=== PATIENT | female | born 1945 | race Caucasian/White ===

== ENCOUNTER → 2016-07-22 | Outpatient (REF) | payer OTHER ==
[2016-07-22 16:50] LABS: ALBUMIN 4.1 GM/DL (3.2-5.2); ALBUMIN/GLOBULIN RATIO 1.08 (1.00-1.93); ALKALINE PHOSPHATASE 50 U/L (45-117); ALT/SGPT 31 U/L (12-78); ANION GAP 11 MEQ/L (8-16); AST/SGOT 16 U/L (15-37); BILIRUBIN,TOTAL 0.3 MG/DL (0.2-1.0); BLOOD UREA NITROGEN 18 MG/DL (7-18); CALCIUM LEVEL 8.8 MG/DL (8.8-10.2); CARBON DIOXIDE LEVEL 28 MEQ/L (21-32); CHLORIDE LEVEL 100 MEQ/L (98-107); CHOLESTEROL LEVEL 260 MG/DL (<200); CREATININE FOR GFR 0.93 MG/DL (0.55-1.02); GLOMERULAR FILTRATION RATE > 60.0 (>39); GLUCOSE, FASTING 141 MG/DL (83-110); POTASSIUM SERUM 3.8 MEQ/L (3.5-5.1); SODIUM LEVEL 139 MEQ/L (136-145); TOTAL PROTEIN 7.9 GM/DL (6.4-8.2); TRIGLYCERIDES LEVEL 282 MG/DL (<150)
== END ==
LOC: M SFHCLACO 07:54
PROVIDERS: ATTEND Physician Assistant
DX: I10 Essential (primary) hypertension (principal); E78.2 Mixed hyperlipidemia; E11.9 Type 2 diabetes mellitus without complications

== ENCOUNTER 2016-10-23 14:56 | Inpatient (IN) | payer OTHER ==
[~2016-10-23] VITALS: Ht 167.6 cm; Wt 68.2 kg
[2016-10-23] MEDS ORDERED: METF500T13 (15:10)
[2016-10-23] MEDS ORDERED: LOSA50TA20 (15:10)
[2016-10-23] MEDS ORDERED: ZETI10TA30 (15:10)
[2016-10-23] MEDS ORDERED: OMEP20CA3 (15:10)
[2016-10-23] MEDS ORDERED: HYDR50TAB (15:10)
[2016-10-23] MEDS ORDERED: ACETAMINOPHEN 325 MG TAB As Ordered ONE (15:21)
[2016-10-23] MEDS ORDERED: ACETAMINOPHEN TAB 650MG DOSE (2X325MG) PO ONE (15:30)
[2016-10-23] MEDS ORDERED: NS 500 ML IV ONE (15:45)
[2016-10-23 15:59] LABS: BASO % 0.1 % (0.0-1.0); EOS % 0.1 % (0.0-3.0); LARGE UNSTAINED CELL # 0.1 K/mm3 (0.0-0.4); LARGE UNSTAINED CELL % 0.8 % (0.0-4.0); LYMPH # 0.8 K/mm3 (1.5-4.5); LYMPH % 4.1 % (24.0-44.0); MEAN CORPUSCULAR VOLUME 88.2 fl (80.0-96.0); MONO # 0.6 K/mm3 (0.0-0.8); MONO % 3.7 % (0.0-5.0); NEUTROPHILS # 15.6 K/mm3 (1.8-7.7); NEUTROPHILS % 91.2 % (36.0-66.0); PLATELET COUNT, AUTOMATED 179 k/mm3 (150-450); RED CELL DISTRIBUTION WIDTH 12.8 % (11.5-14.5); WHITE BLOOD COUNT 17.1 K/mm3 (4.0-10.0)
[2016-10-23 16:06] LABS: ALBUMIN 3.1 GM/DL (3.2-5.2); ALBUMIN/GLOBULIN RATIO 0.67 (1.00-1.93); ALKALINE PHOSPHATASE 50 U/L (45-117); ALT/SGPT 18 U/L (12-78); ANION GAP 11 MEQ/L (8-16); AST/SGOT < 3 U/L (15-37); BILIRUBIN,DIRECT 0.2 MG/DL (0.0-0.2); BILIRUBIN,TOTAL 0.6 MG/DL (0.2-1.0); BLOOD UREA NITROGEN 13 MG/DL (7-18); CALCIUM LEVEL 8.3 MG/DL (8.8-10.2); CARBON DIOXIDE LEVEL 26 MEQ/L (21-32); CHLORIDE LEVEL 95 MEQ/L (98-107); CREATININE FOR GFR 0.98 MG/DL (0.55-1.02); GLOMERULAR FILTRATION RATE 59.2 (>39); GLUCOSE, FASTING 222 MG/DL (83-110); SODIUM LEVEL 132 MEQ/L (136-145); TOTAL PROTEIN 7.7 GM/DL (6.4-8.2)
[2016-10-23 16:12] LABS: ABG BASE EXCESS 0.4 (-2.0-2.0); ABG HCO3 23.2 MEQ/L (22.0-26.0); ABG PARTIAL PRESSURE CO2 31.3 mmHg (35.0-45.0); ABG PARTIAL PRESSURE O2 130.3 mmHg (75.0-100.0); ABG STANDARD HCO3 24.8 MEQ/L (22.0-26.0); ABG TOTAL CO2 24.1 MEQ/L (23.0-31.0); ABG pH (ARTERIAL) 7.487 UNITS (7.350-7.450)
[2016-10-23 16:14] LABS: POTASSIUM SERUM 2.7 MEQ/L (3.5-5.1)
[2016-10-23 16:16] LABS: INR 1.13
[2016-10-23] MEDS ORDERED: POTASSIUM CHLORIDE 10 MEQ SR TABLET PO ONE ×2 (16:30→21:00)
[2016-10-23] MEDS ORDERED: AZITHROMYCIN INJ 500 MG, VIAL MATE ADAPTER 1 EACH in D5W 250 ML IV ONE (16:30)
[2016-10-23] MEDS ORDERED: OMEP20CA3 PO (17:03)
[2016-10-23] MEDS ORDERED: METF500T13 PO (17:03)
[2016-10-23] MEDS ORDERED: HYDR50TAB PO (17:03)
[2016-10-23] MEDS ORDERED: ZETI10TA30 PO (17:03)
[2016-10-23] MEDS ORDERED: LOSA50TA20 PO (17:03)
[2016-10-23] MEDS ORDERED: TYLE500T78 PO (17:03)
[2016-10-23] MEDS ORDERED: DEXTROSE 50% 50 ML SYRINGE IV PRN (18:30)
[2016-10-23] MEDS ORDERED: GLUCOSE 4 GM CHEW TABLET PO PRN (18:30)
[2016-10-23] MEDS ORDERED: GLUCAGON FOR INJ 1 MG VIAL (J1610) SC PRN (18:30)
[2016-10-23] MEDS ORDERED: ONDANSETRON 4MG/2ML VIAL (J2405) IV PRN (18:30)
[2016-10-23 18:42] LABS: MAGNESIUM LEVEL 1.2 MG/DL (1.8-2.4)
[2016-10-23 20:09] LABS: CALCIUM LEVEL 7.8 MG/DL (8.8-10.2); CREATININE FOR GFR 1.14 MG/DL (0.55-1.02); GLOMERULAR FILTRATION RATE 49.7 (>39)
[2016-10-23 20:15] VITALS: BP 139/64
[2016-10-23] MEDS: NS 1,000 ML IV SCH (20:49)
[2016-10-23] MEDS: HumaLOG INSULIN (NovoLOG) PER UNIT SC SCH (20:50)
[2016-10-23] MEDS: OMEPRAZOLE 20 MG CAP PO SCH (20:50)
[2016-10-23] MEDS: EZETIMIBE 10 MG TAB (ZETIA) PO SCH (20:50)
--- NOTE | 2016-10-23 21:29 | HPE ---
DATE OF ADMISSION: 10/23/2016 Ms. Vides is a patient of Samia Lam. "I feel like crap." History of present illness is as follows: This is a 71-year-old female who 3 days ago began having decreasing energy, fatigue she attributed to increased level of activity related to her children coming and visiting for a week. She has been camping, but she began not eating and drinking as much and she vomited today. She also had chills this morning and she was running the heater in the car on a day when the air temperature was approximately 75 degrees. She does not describe any cough and she did note some sore throat today. She was brought to the emergency department for evaluation. She was found to have an elevated white cell count and thought to have group B Streptococcus pharyngitis based on a positive screen for the same. PAST MEDICAL HISTORY: Known for: 1. High blood pressure. 2. Hyperlipidemia. 3. Diabetes on metformin. 4. Gastroesophageal reflux disease (GERD). PAST SURGICAL HISTORY: Known for: 1. Gallbladder removal. 2. Tubal ligation. 3. Removal of blood clots from her legs. 4. Total abdominal hysterectomy and bilateral salpingo-oophorectomy. 5. Removal of kidney stone. FAMILY HISTORY: Known for two parents who from heart attacks. Socially, she is a nonsmoker. She lives in [place]. ALLERGIES: She has listed allergies to ASPIRIN and KEFLEX. MEDICATIONS AT HOME: Listed as: - Tylenol - hydrochlorothiazide - losartan - metformin - Zetia - omeprazole REVIEW OF SYSTEMS: No headache. No visual changes. No runny nose. No sore throat until today. No neck pain. No cough. No abdominal pain. No change in bowel or bladder habits. No focal weakness. No history of seizures. Otherwise, unremarkable. PHYSICAL EXAMINATION: Temperature 101.5 upon arrival, most recently 99.2, pulse was 110 upon arrival, most recently 94, respiratory rate 18, blood pressure 126/60, 95% on room air. Intake and output (I and O) are not recorded. Body mass index (BMI) is 24.3. She is awake, appropriately interactive, excellent historian. Head is normocephalic. Pupils equally round and reactive, anicteric, show evidence of cataract extraction. Nasal septum is midline. Mucous membranes are moist. Neck is supple, thick. There is some pharyngeal erythema and her tonsils are somewhat enlarged, probably around 2+. Breathing is symmetrical. I:E ratio is 1:3. Distant sounding, somewhat diminished to bilateral bases. No wheezes, rales or rhonchi. Heart is distant sounding. Normal S1, S2. Capillary refill is less than 2 seconds. The abdomen is soft, doughy, nontender. No significant lower extremity edema. White cell count 17.1, hemoglobin 10.9, platelets of 179. Sodium is 135, potassium 3.0, carbon dioxide 24, creatinine is 1.14, calcium is 7.8. Urinalysis is notable for trace leukocyte esterase, 13 white cells, 1+ bacteria, 6 squamous epithelial cells. Influenza swab is negative. Respiratory panel is negative as well. Blood cultures are pending. Urine culture pending. Chest x-ray suggests the possibility of right basilar infiltrate. EKG shows a left bundle branch block. There is no previous EKG for me to review in the system. Troponin was negative. My assessment is as follows: This is a 71-year-old with community-acquired pneumonia. Patient will require two-midnight hospital stay for further diagnosis and workup. Plan will be as follows: 1. Infectious disease. The patient has allergy to cephalexin. She appears to have a right-sided pneumonia. Will give Avelox and monitor. Obtain sputum if that should become available. 2. Patient has hypertension. Will hold her antihypertensives in this setting and reassess in the morning. 3. Patient has diabetes. Will withhold her metformin and give insulin sliding scale. 4. Patient has electrolyte abnormality including hyponatremia and hypokalemia. Will replete potassium. 5. Patient has hyperlipidemia. Will continue her Zetia. 6. Patient has gastroesophageal reflux disease (GERD). Continue her proton pump inhibitor (PPI). 7. Deep venous thrombosis (DVT) prophylaxis has been ordered.
[2016-10-23 22:00] VITALS: BP 126/58
[2016-10-24] MEDS: MOXIFLOXACIN HCL 400 MG in APPROPRIATE DILUENT 1 EA IV SCH (05:26)
[2016-10-24] MEDS: ACETAMINOPHEN TAB 650MG DOSE (2X325MG) PO PRN ×2 (05:33→22:02)
[2016-10-24 06:00] VITALS: BP 140/70
[2016-10-24 06:25] LABS: BASO % 0.1 % (0.0-1.0); EOS % 0.1 % (0.0-3.0); LARGE UNSTAINED CELL # 0.2 K/mm3 (0.0-0.4); LARGE UNSTAINED CELL % 1.2 % (0.0-4.0); LYMPH # 1.9 K/mm3 (1.5-4.5); LYMPH % 12.3 % (24.0-44.0); MEAN CORPUSCULAR HEMOGLOBIN 30.2 pg (27.0-33.0); MEAN CORPUSCULAR VOLUME 88.8 fl (80.0-96.0); MONO # 0.5 K/mm3 (0.0-0.8); MONO % 3.2 % (0.0-5.0); NEUTROPHILS # 11.5 K/mm3 (1.8-7.7); PLATELET COUNT, AUTOMATED 172 k/mm3 (150-450); RED CELL DISTRIBUTION WIDTH 12.8 % (11.5-14.5); WHITE BLOOD COUNT 13.8 K/mm3 (4.0-10.0)
[2016-10-24 06:51] LABS: ANION GAP 11 MEQ/L (8-16); BLOOD UREA NITROGEN 12 MG/DL (7-18); CALCIUM LEVEL 8.1 MG/DL (8.8-10.2); CARBON DIOXIDE LEVEL 24 MEQ/L (21-32); CHLORIDE LEVEL 104 MEQ/L (98-107); GLOMERULAR FILTRATION RATE > 60.0 (>39); GLUCOSE, FASTING 165 MG/DL (83-110); MAGNESIUM LEVEL 1.5 MG/DL (1.8-2.4); POTASSIUM SERUM 3.3 MEQ/L (3.5-5.1); SODIUM LEVEL 139 MEQ/L (136-145)
--- NOTE | 2016-10-24 07:12 | REP ---
Portable chest x-ray: Single view. History: Sepsis. Shock. Findings: EKG monitoring electrodes are seen. There are some vague increased markings in the right base infrahilar region, which may be atelectasis and/or infiltrate. Remaining lung orozco are clear. Heart size is borderline. Pleural angles are sharp. No significant bony abnormality. Impression: Increased lung markings right base consistent with infiltrate or atelectasis. Otherwise negative. Signed by Toni Mcdwoell MD 10/24/2016 08:46 A
[2016-10-24] MEDS: NS 1,000 ML IV SCH (07:37)
[2016-10-24] MEDS ORDERED: MAG SULF 1GM/100ML (MAG RUN) 1 GM in APPROPRIATE DILUENT 1 EA IV ONE (08:00)
[2016-10-24] MEDS ORDERED: POTASSIUM CHLORIDE 10 MEQ SR TABLET PO ONE (09:00)
[2016-10-24] MEDS: OMEPRAZOLE 20 MG CAP PO SCH ×2 (09:03→20:54)
[2016-10-24] MEDS: HumaLOG INSULIN (NovoLOG) PER UNIT SC SCH ×4 (09:03→20:54)
[2016-10-24] MEDS: ENOXAPARIN 40 MG/0.4 ML SYRINGE (J1650) SC SCH (09:04)
[2016-10-24 14:00] VITALS: BP 142/62
--- NOTE | 2016-10-24 15:45 | IPNPDOC ---
Text Note Date of Service The patient was seen on 10/24/16. NOTE Subjective: Patient is a 71 year old female with a PMHx of HTN, DLP, NIDDM2 and GERD who presented to the ER with complaints of decreased energy, SOB and cough for 1 week duration. Patient noted to have chills and cold sweats at home. Upon arrival to ER she was found to have a developing right LL pneumonia and was admitted to hospitalist service. Patient was seen and examined at the bedside. She notes that she experiences some right lower chest pain, worse with deep inspiration. Reports mild SOB, but tolerable. She notes a mild cough, but no sputum production. Denies any fever or chills currently. Objective: Vitals (See below) General: Lying in bed, no acute distress, comfortable, AAOx3 HEENT: NC, AT CVS: RRR, +S1S2 Lungs: Fair air entry b/l, + crackles at right lung base Abdomen: Soft, ND, NT, +BSx4 Extremities: - Edema, - Calf tenderness Assessment and plan: Dyspnea / Fever - likely 2/2 community acquire pneumonia - Presented with SOB, cough and fevers - Physical with right lower lobe crackles - Leukocytosis improving, No lactic acidosis - Blood cultures 10/23: Pending; Influenza 10/23: Negative - CXR 10/24: increased lung markings right base consistent with infiltrate / atelectasis - c/w Moxifloxacin Hypokalemia - improving - will further supplement this morning Hypomagnesemia - will supplement HTN - will continue to hold Losartan and HCTZ - reconsider starting on 10/25 DLP - c/w Ezetimibe NIDDM2 - Metformin as outpatient on hold - c/w ISS GERD - c/w Omeprazole DVT prophylaxis - c/w Lovenox VS,Fishbone, I+O VS, Fishbone, I+O Laboratory Tests 10/23/16 19:45 Calcium Level 7.8 L 10/24/16 05:40 Calcium Level 8.1 L, Red Blood Count 3.30 L, Mean Corpuscular Volume 88.8, Mean Corpuscular Hemoglobin 30.2, Mean Corpuscular Hemoglobin Concent 34.0, Red Cell Distribution Width 12.8, Neutrophils (%) (Auto) 83.0 H, Lymphocytes (%) (Auto) 12.3 L, Monocytes (%) (Auto) 3.2, Eosinophils (%) (Auto) 0.1, Basophils (%) ( Auto) 0.1, Neutrophils # (Auto) 11.5 H, Lymphocytes # (Auto) 1.9, Monocytes # ( Auto) 0.5, Eosinophils # (Auto) 0.0, Basophils # (Auto) 0.0 Vital Signs Date Time Temp Pulse Resp B/P (MAP) Pulse Ox O2 Delivery O2 Flow Rate FiO2 10/24/16 14:00 99.0 103 19 142/62 (88) 95 Room Air I&O- Last 24 Hours up to 6 AM 10/24/16 06:00 Intake Total 90 ml Output Total 500 ml Balance -410 ml ERIN SULLIVAN MD Oct 24, 2016 15:45
[2016-10-24] MEDS: EZETIMIBE 10 MG TAB (ZETIA) PO SCH (20:54)
--- NOTE | 2016-10-24 21:30 | ECGEPIP ---
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
[2016-10-24 22:00] VITALS: BP 136/63
[2016-10-25] MEDS: MOXIFLOXACIN HCL 400 MG in APPROPRIATE DILUENT 1 EA IV SCH (05:29)
[2016-10-25 06:00] VITALS: BP 156/68
[2016-10-25 06:01] LABS: BASO % 0.3 % (0.0-1.0); EOS % 0.4 % (0.0-3.0); LARGE UNSTAINED CELL # 0.1 K/mm3 (0.0-0.4); LARGE UNSTAINED CELL % 1.6 % (0.0-4.0); LYMPH # 1.5 K/mm3 (1.5-4.5); LYMPH % 16.6 % (24.0-44.0); MEAN CORPUSCULAR HEMOGLOBIN 29.9 pg (27.0-33.0); MEAN CORPUSCULAR HGB CONC 32.8 g/dl (32.0-36.5); MEAN CORPUSCULAR VOLUME 91.3 fl (80.0-96.0); MONO # 0.5 K/mm3 (0.0-0.8); MONO % 5.5 % (0.0-5.0); NEUTROPHILS # 6.3 K/mm3 (1.8-7.7); NEUTROPHILS % 75.5 % (36.0-66.0); PLATELET COUNT, AUTOMATED 204 k/mm3 (150-450); WHITE BLOOD COUNT 8.4 K/mm3 (4.0-10.0)
[2016-10-25 06:19] LABS: ANION GAP 9 MEQ/L (8-16); BLOOD UREA NITROGEN 11 MG/DL (7-18); CARBON DIOXIDE LEVEL 24 MEQ/L (21-32); CHLORIDE LEVEL 107 MEQ/L (98-107); CREATININE FOR GFR 0.77 MG/DL (0.55-1.02); GLOMERULAR FILTRATION RATE > 60.0 (>39); GLUCOSE, FASTING 187 MG/DL (83-110); MAGNESIUM LEVEL 1.8 MG/DL (1.8-2.4); POTASSIUM SERUM 3.4 MEQ/L (3.5-5.1); SODIUM LEVEL 140 MEQ/L (136-145)
[2016-10-25] MEDS ORDERED: MAG SULF 1GM/100ML (MAG RUN) 1 GM in APPROPRIATE DILUENT 1 EA IV ONE (07:30)
[2016-10-25] MEDS ORDERED: POTASSIUM CHLORIDE 10 MEQ SR TABLET PO ONE (07:30)
[2016-10-25] MEDS: HumaLOG INSULIN (NovoLOG) PER UNIT SC SCH (07:30)
[2016-10-25] MEDS: ENOXAPARIN 40 MG/0.4 ML SYRINGE (J1650) SC SCH (08:49)
[2016-10-25] MEDS: OMEPRAZOLE 20 MG CAP PO SCH (08:50)
[2016-10-25] MEDS ORDERED: PNEUMOCOCCAL VACCINE 0.5ML SYRINGE(90732) PNEUMOVAX 23 IM ONE (09:00)
[2016-10-25] MEDS ORDERED: MOXI1TAB PO (10:02)
--- NOTE | 2016-10-25 14:20 | DSES ---
DATE OF ADMISSION: 10/23/2016 DATE OF DISCHARGE: 10/25/2016 ATTENDING PHYSICIAN: Dr. Di Park PRIMARY CARE PHYSICIAN: Samia Lam. REFERRING PHYSICIAN: None. CONSULTING PHYSICIAN: None. CONDITION ON DISCHARGE: Stable. FINAL DIAGNOSIS: Dyspnea/fever likely secondary to community acquired pneumonia. PROCEDURES: None. HISTORY OF PRESENT ILLNESS: The patient is a 71-year-old female with a past medical history of hypertension, dyslipidemia, non-insulin dependent diabetes mellitus type 2 and gastroesophageal reflux disease (GERD) who presented to the emergency room (ER) with complaints of decreased energy, shortness of breath and cough for one week duration. The patient noted to have chills and cold sweats at home. Upon arrival to the ER, she was found to have a developing right lower lobe pneumonia and was admitted to the hospitalist service. The patient was seen and examined at the bedside. HOSPITAL COURSE: 1. Dyspnea/fever likely secondary to community acquired pneumonia. She presented with shortness of breath, cough, fevers, and physical with right lower lobe crackles. Leukocytosis has been improving along with lactic acidosis. Blood cultures on 10/23/2016 have remained negative. Influenza A19 has been negative. Chest x-ray on 10/24/2016 showed increased lung markings at the right base consistent with infiltrate/atelectasis. The patient was put on moxifloxacin given her allergy to cephalexin and cephalosporin class. On discharge, the patient was advised to continue with moxifloxacin for duration of antibiotic course and followup with her primary care provider within the next 7 days. 2. Hyperkalemia. Has been improving. Will continue supplement this morning. 3. Hypomagnesemia. Will supplement. 4. Hypertension. Will restart losartan and hydrochlorothiazide upon discharge. 5. Dyslipidemia. Continue with ezetimibe. 6. Diabetes mellitus type 2. Metformin will be restarted as an outpatient. As an inpatient she was on insulin sliding scale. 7. Gastroesophageal reflux disease. Continue with omeprazole. 8. Deep vein thrombosis prophylaxis. She is on Lovenox. DISCHARGE MEDICATIONS: The patient has been discharged home on the following medication list: - moxifloxacin 400 mg by mouth daily for the next 5 days - Tylenol 1000 mg by mouth every 6 hours as needed pain - Zetia 10 mg by mouth at bedtime - hydrochlorothiazide 50 mg by mouth daily - losartan 50 mg by mouth daily - metformin 500 mg by mouth twice a day - omeprazole 20 mg by mouth twice a day DISCHARGE INSTRUCTIONS: The patient has been advised to followup with her primary care provider within the next 7 days. She has been advised to remain compliant with the treatment plan and medications and return to the emergency room if she experiences any problems. TIME SPENT ON DISCHARGE: Greater than 35 minutes.
== END 2016-10-25 10:24 | disposition home or self-care (01) | DRG 194 ==
LOC: EDBD 14:56 → M ED 14:56 → M ED INP 18:29 → M MSPAV 20:15
PROVIDERS: ADMIT Internal Medicine; ATTEND Internal Medicine
DX: J18.9 Pneumonia, unspecified organism (principal); E87.1 Hypo-osmolality and hyponatremia; I10 Essential (primary) hypertension; E78.5 Hyperlipidemia, unspecified; E11.9 Type 2 diabetes mellitus without complications; K21.9 Gastro-esophageal reflux disease without esophagitis; E87.6 Hypokalemia; E83.42 Hypomagnesemia; Z79.84 Long term (current) use of oral hypoglycemic drugs; Z79.899 Other long term (current) drug therapy; Z98.51 Tubal ligation status; Z90.710 Acquired absence of both cervix and uterus; Z90.722 Acquired absence of ovaries, bilateral; Z82.49 Family history of ischemic heart disease and other diseases of the circulatory system; Z88.1 Allergy status to other antibiotic agents; Z88.6 Allergy status to analgesic agent

== ENCOUNTER → 2016-11-02 | Outpatient (REF) | payer OTHER ==
[~2016-11-02] MED LIST: HYDR50TAB; HYDR50TAB PO; LOSA50TA20; LOSA50TA20 PO; METF500T13; METF500T13 PO; MOXI1TAB PO; OMEP20CA3; OMEP20CA3 PO; TYLE500T78 PO; ZETI10TA30; ZETI10TA30 PO
== END ==
LOC: M SFHCLACO 07:55
PROVIDERS: ATTEND Physician Assistant
DX: E87.6 Hypokalemia (principal)

== ENCOUNTER → 2016-12-09 | Outpatient (REF) | payer OTHER | LOC: M SFHCADAM 10:16 | PROVIDERS: ATTEND Family Medicine | DX: E11.69 Type 2 diabetes mellitus with other specified complication (principal) ==

== ENCOUNTER → 2016-12-17 | Outpatient (REF) | payer OTHER ==
[2016-12-17 13:26] LABS: BASO # 0.1 10^3/uL (0.0-0.2); EOS # 0.1 10^3/uL (0.0-0.50); IMMATURE GRANULOCYTE % 0.2 % (0-0); LYMPH # 2.2 10^3/uL (1.5-4.5); LYMPH % 36.1 % (24.0-44.0); MEAN CORPUSCULAR HEMOGLOBIN 29.1 pg (27.0-33.0); MEAN CORPUSCULAR HGB CONC 32.4 g/dl (32.0-36.5); MEAN CORPUSCULAR VOLUME 89.8 fl (80.0-96.0); MONO # 0.4 10^3/uL (0.0-0.8); MONO % 6.9 % (0.0-5.0); NEUTROPHILS # 3.3 10^3/uL (1.8-7.7); NEUTROPHILS % 53.8 % (36.0-66.0); PLATELET COUNT, AUTOMATED 204 10^3/uL (150-450); RED CELL DISTRIBUTION WIDTH 13.4 % (11.5-14.5); WHITE BLOOD COUNT 6.1 10^3/uL (4.0-10.0)
[2016-12-17 13:43] LABS: ALBUMIN 4.3 GM/DL (3.2-5.2); ALBUMIN/GLOBULIN RATIO 1.16 (1.00-1.93); ALKALINE PHOSPHATASE 50 U/L (45-117); ALT/SGPT 24 U/L (12-78); ANION GAP 10 MEQ/L (8-16); AST/SGOT 13 U/L (15-37); BILIRUBIN,TOTAL 0.3 MG/DL (0.2-1.0); BLOOD UREA NITROGEN 21 MG/DL (7-18); CALCIUM LEVEL 9.7 MG/DL (8.8-10.2); CARBON DIOXIDE LEVEL 29 MEQ/L (21-32); CHLORIDE LEVEL 98 MEQ/L (98-107); CREATININE FOR GFR 0.91 MG/DL (0.55-1.02); GLOMERULAR FILTRATION RATE > 60.0 (>39); GLUCOSE, FASTING 148 MG/DL (83-110); SODIUM LEVEL 137 MEQ/L (136-145)
== END ==
LOC: M SFHCADAM 07:53
PROVIDERS: ATTEND Family Medicine
DX: E11.69 Type 2 diabetes mellitus with other specified complication (principal); Z86.2 Personal history of diseases of the blood and blood-forming organs and certain disorders involving the immune mechanism

== ENCOUNTER → 2017-03-16 | Outpatient (REF) | payer OTHER ==
[2017-03-16 13:49] LABS: ESTIMATED AVERAGE GLUCOSE 169 MG/DL (60-110); HEMOGLOBIN A1c 7.5 %
== END ==
LOC: M SFHCADAM 08:01
DX: E11.69 Type 2 diabetes mellitus with other specified complication (principal); E66.9 Obesity, unspecified; Z68.31 Body mass index [BMI] 31.0-31.9, adult
CPT/HCPCS: 83036

== ENCOUNTER → 2017-03-27 | Outpatient (REF) | payer OTHER ==
[2017-03-27 18:55] LABS: ALBUMIN 4.4 GM/DL (3.2-5.2); ALBUMIN/GLOBULIN RATIO 1.16 (1.00-1.93); ALKALINE PHOSPHATASE 53 U/L (45-117); ALT/SGPT 26 U/L (12-78); ANION GAP 7 MEQ/L (8-16); AST/SGOT 12 U/L (7-37); BILIRUBIN,TOTAL 0.3 MG/DL (0.2-1.0); BLOOD UREA NITROGEN 25 MG/DL (7-18); CALCIUM LEVEL 9.1 MG/DL (8.8-10.2); CARBON DIOXIDE LEVEL 31 MEQ/L (21-32); CHLORIDE LEVEL 99 MEQ/L (98-107); CHOLESTEROL LEVEL 249 MG/DL (<200); CHOLESTEROL RISK RATIO 5.081 (<5); CREATININE FOR GFR 0.94 MG/DL (0.55-1.02); GLOMERULAR FILTRATION RATE > 60.0 (>39); GLUCOSE, FASTING 131 MG/DL (83-110); HDL CHOLESTEROL 49 MG/DL (>40); LDL CHOLESTEROL 156.6 MG/DL (<100); NON-HDL-C 200 MG/DL; POTASSIUM SERUM 3.9 MEQ/L (3.5-5.1); SODIUM LEVEL 137 MEQ/L (136-145); TOTAL PROTEIN 8.2 GM/DL (6.4-8.2); TRIGLYCERIDES LEVEL 217 MG/DL (<150)
[2017-03-27 18:58] LABS: HEMATOCRIT 37.7 % (36.0-47.0); HEMOGLOBIN 12.1 g/dl (12.0-16.0); MEAN CORPUSCULAR HEMOGLOBIN 29.2 pg (27.0-33.0); MEAN CORPUSCULAR HGB CONC 32.1 g/dl (32.0-36.5); MEAN CORPUSCULAR VOLUME 90.8 fl (80.0-96.0); PLATELET COUNT, AUTOMATED 237 10^3/uL (150-450); RED BLOOD COUNT 4.15 10^6/uL (4.00-5.40); RED CELL DISTRIBUTION WIDTH 13.2 % (11.5-14.5)
== END ==
LOC: M SFHCADAM 09:47
DX: E11.9 Type 2 diabetes mellitus without complications (principal)
CPT/HCPCS: 80053

== ENCOUNTER → 2017-06-06 | Outpatient (CLI) | payer OTHER | LOC: M WHC 08:14 | DX: Z78.0 Asymptomatic menopausal state (principal) | CPT/HCPCS: 77080 ==

== ENCOUNTER → 2017-06-17 | Outpatient (REF) | payer OTHER ==
[2017-06-17 13:04] LABS: ESTIMATED AVERAGE GLUCOSE 148 MG/DL (60-110); HEMOGLOBIN A1c 6.8 %
== END ==
LOC: M SFHCADAM 07:56
DX: E11.69 Type 2 diabetes mellitus with other specified complication (principal)
CPT/HCPCS: 83036

== ENCOUNTER → 2017-10-01 | Outpatient (REF) | payer OTHER ==
[2017-10-01 13:58] LABS: ESTIMATED AVERAGE GLUCOSE 148 MG/DL (60-110); HEMOGLOBIN A1c 6.8 %
== END ==
LOC: M LABDRWAD 13:19
DX: E11.9 Type 2 diabetes mellitus without complications (principal)
CPT/HCPCS: 83036

== ENCOUNTER → 2018-01-07 | Outpatient (REF) | payer OTHER ==
[2018-01-07 09:41] LABS: ALBUMIN 4.1 GM/DL (3.2-5.2); ALBUMIN/GLOBULIN RATIO 1.21 (1.00-1.93); ALKALINE PHOSPHATASE 50 U/L (45-117); ALT/SGPT 24 U/L (12-78); ANION GAP 9 MEQ/L (8-16); AST/SGOT 18 U/L (7-37); BILIRUBIN,TOTAL 0.3 MG/DL (0.2-1.0); BLOOD UREA NITROGEN 17 MG/DL (7-18); CALCIUM LEVEL 9.3 MG/DL (8.8-10.2); CARBON DIOXIDE LEVEL 28 MEQ/L (21-32); CHLORIDE LEVEL 102 MEQ/L (98-107); CREATININE FOR GFR 0.96 MG/DL (0.55-1.30); GLOMERULAR FILTRATION RATE > 60.0 (>39); GLUCOSE, FASTING 133 MG/DL (70-100); SODIUM LEVEL 139 MEQ/L (136-145); TOTAL PROTEIN 7.5 GM/DL (6.4-8.2)
[2018-01-07 09:46] LABS: ESTIMATED AVERAGE GLUCOSE 154 MG/DL (60-110)
== END ==
LOC: M SFHCADAM 08:07
DX: E11.9 Type 2 diabetes mellitus without complications (principal)
CPT/HCPCS: 80053

== ENCOUNTER → 2018-06-05 | Outpatient (REF) | payer OTHER ==
[~2018-06-05] MED LIST changes: -LOSA50TA20; -LOSA50TA20 PO; +LOSA50TA88; +LOSA50TA88 PO
[2018-06-05 14:47] LABS: HEMOGLOBIN A1c 6.9 %
== END ==
LOC: M SFHCADAM 07:37
PROVIDERS: ATTEND Family Medicine
DX: E11.9 Type 2 diabetes mellitus without complications (principal)

== ENCOUNTER → 2018-07-21 | Outpatient (REF) | payer MEDICARE ==
[2018-07-21 20:10] LABS: BASO # 0.1 10^3/uL (0.0-0.2); EOS # 0.1 10^3/uL (0.0-0.50); EOS % 0.7 % (0.0-3.0); HEMATOCRIT 36.4 % (36.0-47.0); HEMOGLOBIN 11.7 g/dl (12.0-15.5); LYMPH # 2.4 10^3/uL (1.5-4.5); LYMPH % 35.2 % (24.0-44.0); MEAN CORPUSCULAR HEMOGLOBIN 28.6 pg (27.0-33.0); MEAN CORPUSCULAR HGB CONC 32.1 g/dl (32.0-36.5); MONO # 0.5 10^3/uL (0.0-0.8); MONO % 6.8 % (0.0-5.0); NEUTROPHILS # 3.9 10^3/uL (1.8-7.7); NEUTROPHILS % 55.9 % (36.0-66.0); PLATELET COUNT, AUTOMATED 250 10^3/uL (150-450); RED BLOOD COUNT 4.09 10^6/uL (4.00-5.40); WHITE BLOOD COUNT 6.9 10^3/uL (4.0-10.0)
[2018-07-21 20:26] LABS: ALBUMIN 4.4 GM/DL (3.2-5.2); ALT/SGPT 24 U/L (12-78); BILIRUBIN,TOTAL 0.3 MG/DL (0.2-1.0); BLOOD UREA NITROGEN 24 MG/DL (7-18); CALCIUM LEVEL 9.8 MG/DL (8.8-10.2); CARBON DIOXIDE LEVEL 28 MEQ/L (21-32); CHLORIDE LEVEL 101 MEQ/L (98-107); CHOLESTEROL LEVEL 243 MG/DL (<200); CHOLESTEROL RISK RATIO 5.062 (<5); CREATININE FOR GFR 0.92 MG/DL (0.55-1.30); GLOMERULAR FILTRATION RATE > 60.0 (>39); GLUCOSE, FASTING 112 MG/DL (70-100); HDL CHOLESTEROL 48 MG/DL (>40); LDL CHOLESTEROL 132 MG/DL (<100); MAGNESIUM LEVEL 1.1 MG/DL (1.8-2.4); NON-HDL-C 195 MG/DL; POTASSIUM SERUM 3.9 MEQ/L (3.5-5.1); SODIUM LEVEL 139 MEQ/L (136-145); TRIGLYCERIDES LEVEL 315 MG/DL (<150)
[2018-07-21 20:46] LABS: HEMOGLOBIN A1c 7.7 %
== END ==
LOC: M SFHCADAM 11:44
PROVIDERS: ATTEND Family Medicine
DX: E11.69 Type 2 diabetes mellitus with other specified complication (principal); I10 Essential (primary) hypertension; E78.2 Mixed hyperlipidemia; E83.42 Hypomagnesemia
CPT/HCPCS: 80053; 80061; 83036; 83735; 85025; G0463

== ENCOUNTER → 2018-08-11 | Outpatient (REF) | payer MEDICARE | LOC: M SFHCADAM 09:06 | PROVIDERS: ATTEND Family Medicine | DX: E83.42 Hypomagnesemia (principal) ==

== ENCOUNTER 2018-09-13 07:37 | Day surgery (SDC) | payer MEDICARE ==
[~2018-09-13] VITALS: Ht 160 cm; Wt 76.2 kg
[~2018-09-13 07:37] MED LIST changes: +NS 1,000 ML IV ONE; -OMEP20CA3; -OMEP20CA3 PO; +OMEP20CA4; +OMEP20CA4 PO; +PRAV20TA2 PO; +QC A650T3 PO; +SLOWTAB2 PO
[2018-09-13] MEDS ORDERED: PROPOFOL 500 MG/50 ML VIAL As Ordered ONE (08:26)
[2018-09-13] MEDS ORDERED: LIDOCAINE 2% INJ 100 MG/5 ML SDV (FOR ANES.) As Ordered ONE (08:26)
--- NOTE | 2018-09-13 08:44 | ROOR ---
Patient Name: Danya Vides Procedure Date: 09/13/2018 8:21 AM Date of : 1945 Age: 73 Room: [facility] Gender: Female Note Status: Finalized Procedure: Colonoscopy Indications: Clinically significant diarrhea of unexplained origin Providers: Kev Cabezas DO Referring MD: Luma ANTHONY DO Requesting Provider: Medicines: Propofol per Anesthesia Complications: No immediate complications. Estimated blood loss: Minimal. Procedure: Pre-Anesthesia Assessment: - Prior to the procedure, a History and Physical was performed, and patient medications and allergies were reviewed. The patient is competent. The risks and benefits of the procedure and the sedation options and risks were discussed with the patient. All questions were answered and informed consent was obtained. Patient identification and proposed procedure were verified by the physician, the nurse, the anesthesiologist and the chemical engineering technician in the endoscopy suite. Mental Status Examination: alert and oriented. Airway Examination: normal oropharyngeal airway and neck mobility. Respiratory Examination: clear to auscultation. CV Examination: normal. Prophylactic Antibiotics: The patient does not require prophylactic antibiotics. Prior Anticoagulants: The patient has taken no previous anticoagulant or antiplatelet agents. ASA Grade Assessment: II - A patient with mild systemic disease. After reviewing the risks and benefits, the patient was deemed in satisfactory condition to undergo the procedure. The anesthesia plan was to use monitored anesthesia care (MAC). Immediately prior to administration of medications, the patient was re-assessed for adequacy to receive sedatives. The heart rate, respiratory rate, oxygen saturations, blood pressure, adequacy of pulmonary ventilation, and response to care were monitored throughout the procedure. The physical status of the patient was re-assessed after the procedure. The Colonoscope was introduced through the anus and advanced to the cecum, identified by appendiceal orifice and ileocecal valve. The colonoscopy was performed without difficulty. The patient tolerated the procedure well. Findings: Internal hemorrhoids were found during retroflexion. The hemorrhoids were small. Multiple small-mouthed diverticula were found in the sigmoid colon. Four semi-pedunculated polyps were found in the ascending colon and cecum. The polyps were less than 5 mm in size. These polyps were removed with a hot snare. Resection and retrieval were complete. Estimated blood loss was minimal. The exam was otherwise without abnormality on direct and retroflexion views. Impression: - Internal hemorrhoids. - Diverticulosis in the sigmoid colon. - Four less than 5 mm polyps in the ascending colon and in the cecum, removed with a hot snare. Resected and retrieved. - The examination was otherwise normal on direct and retroflexion views. Recommendation: - Patient has a contact number available for emergencies. The signs and symptoms of potential delayed complications were discussed with the patient. Return to normal activities tomorrow. Written discharge instructions were provided to the patient. - Repeat colonoscopy in 3 - 5 years for surveillance based on pathology results. - Return to my office as previously scheduled. Kev Cabezas DO 09/13/2018 8:44:38 AM Electronically signed by Kev Cabezas DO Number of Addenda: 0 Note Initiated On: 09/13/2018 8:21 AM Estimated Blood Loss: Estimated blood loss was minimal.
[2018-09-13 09:00] VITALS: BP 131/84
== END 2018-09-13 09:10 | disposition home or self-care (01) ==
LOC: M OPP 07:37
PROVIDERS: ATTEND Surgery
DX: K64.8 Other hemorrhoids (principal); D12.2 Benign neoplasm of ascending colon; D12.0 Benign neoplasm of cecum; K57.30 Diverticulosis of large intestine without perforation or abscess without bleeding; R19.7 Diarrhea, unspecified; Z79.84 Long term (current) use of oral hypoglycemic drugs; Z79.899 Other long term (current) drug therapy; Z88.8 Allergy status to other drugs, medicaments and biological substances

== ENCOUNTER → 2018-10-03 | Outpatient (REF) | payer MEDICARE ==
[~2018-10-03] MED LIST changes: -NS 1,000 ML IV ONE
[2018-10-03 13:11] LABS: CHOLESTEROL RISK RATIO 4.734 (<5)
== END ==
LOC: M SFHCADAM 07:56
PROVIDERS: ATTEND Family Medicine
DX: E78.2 Mixed hyperlipidemia (principal)

== ENCOUNTER → 2018-10-05 | Outpatient (REF) | payer MEDICARE ==
[~2018-10-05] MED LIST changes: +ZETI10TA16; +ZETI10TA16 PO; -ZETI10TA30; -ZETI10TA30 PO
[2018-10-05 14:34] LABS: HEMOGLOBIN A1c 7.5 %
== END ==
LOC: M SFHCADAM 09:04
PROVIDERS: ATTEND Family Medicine
DX: E11.69 Type 2 diabetes mellitus with other specified complication (principal)
CPT/HCPCS: 83036; G0463

== ENCOUNTER → 2019-02-02 | Outpatient (CLI) | payer MEDICARE ==
[2019-02-02 11:33] LABS: CHOLESTEROL RISK RATIO 5.306 (<5)
[2019-02-02 11:40] LABS: HEMOGLOBIN A1c 6.9 %
== END ==
LOC: M LABDRWAD 08:07
PROVIDERS: ATTEND Family Medicine
DX: E11.69 Type 2 diabetes mellitus with other specified complication (principal); E78.2 Mixed hyperlipidemia

== ENCOUNTER → 2019-05-05 | Outpatient (REF) | payer MEDICARE ==
[~2019-05-05] MED LIST changes: +OMEP1CAP73; +OMEP1CAP73 PO; -OMEP20CA4; -OMEP20CA4 PO
[2019-05-05 18:38] LABS: HEMOGLOBIN A1c 6.8 %
[2019-05-05 18:48] LABS: ALBUMIN 4.1 GM/DL (3.2-5.2); BILIRUBIN,TOTAL 0.2 MG/DL (0.2-1.0); CALCIUM LEVEL 8.6 MG/DL (8.8-10.2); CREATININE FOR GFR 1.11 MG/DL (0.55-1.30); POTASSIUM SERUM 3.8 MEQ/L (3.5-5.1); TOTAL PROTEIN 7.7 GM/DL (6.4-8.2)
== END ==
LOC: M SFHCADAM 08:07
PROVIDERS: ATTEND Family Medicine
DX: E11.9 Type 2 diabetes mellitus without complications (principal)

== ENCOUNTER → 2019-05-05 | Outpatient (CLI) | payer MEDICARE | LOC: M ADAMS 08:20 | PROVIDERS: ATTEND Family Medicine | DX: E11.9 Type 2 diabetes mellitus without complications (principal) ==

== ENCOUNTER → 2020-01-15 | Outpatient (REF) | payer MEDICARE ==
[2020-01-15 12:55] LABS: ALBUMIN 3.9 GM/DL (3.2-5.2); BILIRUBIN,TOTAL 0.3 MG/DL (0.2-1.0); CREATININE FOR GFR 1.18 MG/DL (0.55-1.30); GLOMERULAR FILTRATION RATE 47.4 (>39); POTASSIUM SERUM 3.9 MEQ/L (3.5-5.1); TOTAL PROTEIN 7.5 GM/DL (6.4-8.2)
[2020-01-15 13:29] LABS: HEMOGLOBIN A1c 6.9 %
== END ==
LOC: M SFHCADAM 12:08
PROVIDERS: ATTEND Family Medicine
DX: E11.8 Type 2 diabetes mellitus with unspecified complications (principal)

== ENCOUNTER → 2020-04-30 | Outpatient (REF) | payer MEDICARE ==
[2020-04-30 14:33] LABS: HEMOGLOBIN A1c 6.7 %
== END ==
LOC: M SFHCADAM 07:56
PROVIDERS: ATTEND Family Medicine
DX: E11.9 Type 2 diabetes mellitus without complications (principal)

== ENCOUNTER → 2020-07-24 | Outpatient (REF) | payer MEDICARE ==
[2020-07-24 14:37] LABS: HEMOGLOBIN A1c 6.7 %
== END ==
LOC: M SFHCADAM 07:46
PROVIDERS: ATTEND Family Medicine
DX: E11.69 Type 2 diabetes mellitus with other specified complication (principal)

== ENCOUNTER → 2020-10-27 | Outpatient (REF) | payer MEDICARE ==
[2020-10-27 12:40] LABS: BASO # 0.1 10^3/uL (0.0-0.2); BASO % 1.3 % (0.0-1.0); EOS # 0.1 10^3/uL (0.0-0.5); EOS % 1.9 % (0.0-3.0); HEMATOCRIT 34.5 % (36.0-47.0); HEMOGLOBIN 11.2 g/dl (12.0-15.5); LYMPH # 1.9 10^3/uL (1.5-5.0); LYMPH % 30.5 % (24.0-44.0); MEAN CORPUSCULAR HEMOGLOBIN 29.2 pg (27.0-33.0); MEAN CORPUSCULAR HGB CONC 32.5 g/dl (32.0-36.5); MEAN CORPUSCULAR VOLUME 89.8 fl (80.0-96.0); MONO # 0.4 10^3/uL (0.0-0.8); MONO % 6.7 % (2.0-8.0); NEUTROPHILS # 3.7 10^3/uL (1.5-8.5); NEUTROPHILS % 59.3 % (36.0-66.0); PLATELET COUNT, AUTOMATED 243 10^3/uL (150-450); RED BLOOD COUNT 3.84 10^6/uL (4.00-5.40); WHITE BLOOD COUNT 6.2 10^3/uL (4.0-10.0)
[2020-10-27 13:12] LABS: ALBUMIN 3.9 GM/DL (3.2-5.2); BILIRUBIN,TOTAL 0.3 MG/DL (0.2-1.0); CALCIUM LEVEL 9.4 MG/DL (8.8-10.2); CHOLESTEROL RISK RATIO 5.844 (<5); CREATININE FOR GFR 1.23 MG/DL (0.55-1.30); GLOMERULAR FILTRATION RATE 45.1 (>39); POTASSIUM SERUM 3.8 MEQ/L (3.5-5.1); THYROID STIMULATING HORMONE 14.3 uIU/ML (0.358-3.740); TOTAL PROTEIN 7.9 GM/DL (6.4-8.2)
[2020-10-27 13:28] LABS: HEMOGLOBIN A1c 7.5 %
== END ==
LOC: M SFHCADAM 07:58
PROVIDERS: ATTEND Family Medicine
DX: E11.69 Type 2 diabetes mellitus with other specified complication (principal)

== ENCOUNTER 2020-12-08 17:44 | Inpatient (IN) | payer MEDICARE ==
[~2020-12-08] VITALS: Ht 157.5 cm; Wt 81.4 kg
[~2020-12-08 17:44] MED LIST changes: -EZET10TA21 PO; -FAMO20TA PO; -LEVO250T12 PO; -METF-838 PO
[2020-12-08] MEDS ORDERED: EZET10TA21 PO (18:33)
[2020-12-08] MEDS ORDERED: MAG SULF 1GM/100ML (MAG RUN) 1 GM in IV 1 EA IV ONE ×2 (19:10→20:00)
[2020-12-08 19:24] LABS: BASO # 0.1 10^3/uL (0.0-0.2); BASO % 0.7 % (0.0-1.0); EOS # 0.1 10^3/uL (0.0-0.5); EOS % 0.8 % (0.0-3.0); HEMATOCRIT 36.6 % (36.0-47.0); LYMPH # 2.9 10^3/uL (1.5-5.0); LYMPH % 27.7 % (24.0-44.0); MEAN CORPUSCULAR HEMOGLOBIN 29.3 pg (27.0-33.0); MEAN CORPUSCULAR HGB CONC 32.8 g/dl (32.0-36.5); MEAN CORPUSCULAR VOLUME 89.5 fl (80.0-96.0); MONO # 0.7 10^3/uL (0.0-0.8); MONO % 6.7 % (2.0-8.0); NEUTROPHILS # 6.6 10^3/uL (1.5-8.5); NEUTROPHILS % 63.7 % (36.0-66.0); PLATELET COUNT, AUTOMATED 219 10^3/uL (150-450); RED BLOOD COUNT 4.09 10^6/uL (4.00-5.40); WHITE BLOOD COUNT 10.4 10^3/uL (4.0-10.0)
[2020-12-08] MEDS ORDERED: NS 1,000 ML IV ONE ×2 (19:25→22:20)
--- NOTE | 2020-12-08 19:36 | REP ---
INDICATION: palpitations COMPARISON: 10/23/2016 TECHNIQUE: Portable AP view of the chest FINDINGS: The mediastinum and cardiac silhouette are stable and within normal limits for portable technique. Large hiatal hernia noted. The lung orozco are clear without acute consolidation, effusion, or pneumothorax. Skeletal structures are intact. IMPRESSION: No acute cardiopulmonary process appreciated. <Electronically signed by Baldev Green > 12/08/20 1936
[2020-12-08 19:48] LABS: BLOOD UREA NITROGEN 28 MG/DL (7-18); CALCIUM LEVEL 9.2 MG/DL (8.8-10.2); CARBON DIOXIDE LEVEL 22 MEQ/L (21-32); CHLORIDE LEVEL 106 MEQ/L (98-107); CK-MB VALUE MASS 1.8 NG/ML (<3.6); CPK CREATINE PHOSPHOKINASE 116 U/L (26-192); CREATININE FOR GFR 1.57 MG/DL (0.55-1.30); GLUCOSE, FASTING 141 MG/DL (70-100); MB/CK RELATIVE INDEX 1.55 (< OR =4); NT-PRO BNP 1452 PG/ML (<450); POTASSIUM SERUM 3.6 MEQ/L (3.5-5.1); SODIUM LEVEL 139 MEQ/L (136-145); TROPONIN I < 0.02 NG/ML (< 0.10)
[2020-12-08] MEDS ORDERED: METF-838 PO (20:32)
[2020-12-08] MEDS ORDERED: HOME MED LIST COMPLETE! XX SCH (20:50)
[2020-12-08] MEDS ORDERED: HumaLOG INSULIN (NovoLOG) PER UNIT SC SCH (21:00)
[2020-12-08] MEDS ORDERED: MAALOX 30 ML SUSP *UDC PO PRN (22:05)
[2020-12-08] MEDS ORDERED: DEXTROSE 50% 50 ML SYRINGE IV PRN (22:05)
[2020-12-08] MEDS ORDERED: GLUCAGON INJ 1MG VIAL SC PRN (22:05)
[2020-12-08] MEDS ORDERED: GLUCOSE 4GM CHEW TABLET PO PRN (22:05)
[2020-12-08] MEDS ORDERED: ACETAMINOPHEN TAB 650MG DOSE (2X325MG) PO PRN (22:05)
--- NOTE | 2020-12-08 22:38 | HPEPDOC ---
[facility] Medical History & Physical Date of Admission Dec 08, 2020 Date of Service: Dec 08, 2020 Primary Care Physician: TREVOR ALVARADO DO Attending Physician: RENEE MYRICK MD History and Physical CHIEF COMPLAINT: Lightheadedness HISTORY OF PRESENT ILLNESS: Coral is a pleasant 75yo female with notable PMHx NIDDMII, HTN, DLD, chronic diarrhea/?IBS, , chronic hypomagnesemia, and remote LLE DVT (), who presented to the [facility] ED on 12/08/2020 with a chief complaint of episodes of lightheadedness. The patient story goes back to this past Tuesday evening (12/05/2020), when she was out grocery shopping and experienced acute onset of lightheadedness without any loss of consciousness; she stabilize herself on her shopping cart and within seconds her symptoms resolved. Throughout the day Tuesday (12/06), patient had roughly 4-5 similar episodes of lightheadedness; all of which resolved spontaneously and had no associated loss of consciousness. On Tuesday (12/07), patient only experienced one such episode. With every episode over the 72 hours since symptom onset, patient denies any associated loss of consciousness, dizziness, tinnitus, chest pain, chest pressure, palpitations, dyspnea, falls, numbness or paresthesias, gait instability, nausea, or vomiting. Two of the episodes on Tuesday, 12/06, occurred while the patient was simply at rest watching television; all other episodes have occurred with activity, either walking or transitioning from a seated to standing position. Patient denies ever having these types of symptomatic episodes in the past. She denies any recent changes in her diet or medication regimen. On notable review, patient has chronic diarrhea over the past 2 years. She usually experiences 3-4 nonbloody loose stools every morning which is her baseline. There is been no change in her baseline diarrhea over these past few few days with the concurrent lightheadedness. The patient was seen by her primary care physician (Dr. Conroy) this morning (12/08), who obtained a CBC with differential (notable only for hemoglobin of 11.8 (recent baseline appears to be about 11), serum glucose 114, BUN 26, creatinine 1.3 with calculated GFR 42.3%, TSH of 9.97 and a free T4 of 0.68. Per her PCPs note, the patient was reluctant at this morning's visit to be evaluated the hospital. A referral was made by her PCP to cardiology for repeated episodes of presyncope. It also appears that the patient and her PCP discussed that she check her blood sugars whenever she has a symptomatic episode. Of note, while patient is a diabetic, she has not been checking her sugars regularly prior to this new instruction from her PCP. Per the patient, her PCP also instructed her should she experience the symptoms again, that she present to either urgent care or emergency department. When patient had another transient episode of lightheadedness this afternoon roughly around 4 PM, she and her significant other collaboratively decided it was best that she present to the ED for evaluation. In the emergency department, patient was found to be in sinus tachycardia with no associated symptoms. At one point she did have a blood pressure calculated 191/78, but had improved to the 130s systolic since. EKG showed sinus rhythm with PACs, left axis deviation, left bundle branch block, and widened QRS. Initial troponins were negative and patient was asymptomatic. She did have a significantly low serum magnesium (0.9). Two intravenous magnesium runs were ordered. The emergency department did speak with the on-call building inspection engineer (Dr. Suresh) who felt as though patient's sinus tach/p SVT was more reactive than anything else, and advised correcting electrolytes, hydrating the patient, and avoiding beta-blockade as patient's complexes/on EKG were unremarkable. Of note, the emergency department reported patient's baseline heart rates to be in the high 80s to low 90s. Other relevant labs in the ED revealed BUN of 28, creatinine 1.57 (recent baseline about 1.2) with calculated GFR of 34%, BNP of 1452 (no priors on file to assess for baseline). A urinalysis was ordered which showed positive nitrite, 2+ leuk esterase, and 2+ urine bacteria with a reflex sent off to culture. 1 view chest x-ray showed no acute cardiopulmonary process. In addition to the magnesium runs, patient was administered a 1 L saline bolus, and initial orthostatic vital sign order was placed, and a GI panel was also obtained. Patient was subsequently admitted under the care of the hospitalist service primarily for recent presyncopal episodes with associated acute renal failure and dehydration. In the ED, patient verbally confirms that she is a full code. Allergy to ASA (full body pruritic blisters and chest pain) She would like her significant other (Usman Cochran; [phone]) to be her primary contact center team lead. PAST MEDICAL HISTORY: Hypertension, on losartan 50 mg daily and hydrochlorothiazide 50 mg daily Uwl-svypmsc-khtdugxub diabetes mellitus type 2, on 500 mg Metformin 2 tabs twice a day (2000 mg total daily) Dyslipidemia, on ezetimibe daily Chronic hypomagnesemia, on slow magnesium supplementation 2 pills (71.5 mg) daily Chronic nonbloody diarrhea for least the past 2 years/? Irritable bowel syndrome (per patient) Chronic kidney disease, stage IIIa; on review of records, patient's most recent outpatient calculated GFR records and there is 40s-50s% range. Remote history of left lower extremity deep vein thrombosis (; patient underwent surgical removal blood clots apparently) Bilateral cataracts status post surgical correction Nephrolithiasis (right kidney), 1991 status post surgical removal PAST SURGICAL HISTORY: Cholecystectomy, 1969 Tubal ligation, 1969 Surgical removal of left lower extremity DVT, Total abdominal hysterectomy/bilateral salpingo-oophorectomy, 1991 Removal of kidney stone from right kidney, 1991 2016, bilateral cataract surgery Colonoscopy, 2019 (done by Dr. Cabezas) SOCIAL HISTORY: Patient lives in [place], [place] with her significant other of 15 years (Usman). She is a x2, has 2 biological sons, one adopted son, and 1 adopted daughter, with 22 grandchildren. 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 Mother: ; [place]. Siblings: Sister () Alzheimer's disease; brother () of unknown causes; patient has 2 sisters that are currently living. No significant medical history of her 2 biological sons (patient also has 1 adopted son and 1 adopted daughter) ALLERGIES: Please see below. REVIEW OF SYSTEMS: CONSTITUTIONAL: Denies any recent fever, chills, night sweats, or unintentional change in weight HEENT: Denies double vision, blurry vision, tinnitus, ear pain, dysphagia, or odynophagia CARDIOVASCULAR: Denies chest pain, chest pressure, or palpitations RESPIRATORY: Denies shortness of breath, pleuritic chest pain, or cough GASTROINTESTINAL: Reports chronic nonbloody diarrhea that is unchanged from recent baseline. Denies any abdominal pain, nausea, vomiting. GENITOURINARY: Denies any suprapubic tenderness, flank pain, dysuria, or hematuria MUSCULOSKELETAL: Denies feeling any significant muscle weakness over the past few days with her episodes of lightheadedness. NEUROLOGICAL: Reports lightheadedness as described in HPI; denies any dizziness, headaches, difficulty speaking, difficulty forming thoughts, gait instability, or numbness or paresthesias of extremities HEMATOLOGIC: Denies any recent easy bleeding or bruising LYMPHATIC: Denies noticing any new recent lumps or bumps HOME MEDICATIONS: Please see below. PHYSICAL EXAMINATION: VITAL SIGNS: Please see below. GENERAL APPEARANCE: Pleasant elderly female lying upright in ED bed. She appears to be in no acute distress. HEENT: Normocephalic, atraumatic. Noninjected, anicteric sclera. PERRLA. EOMI. Oral cavity: No pharyngeal erythema or exudate appreciated. MMM. Neck: No lymphadenopathy. Trachea midline. No significant JVD appreciated. No thyroid nodules or structural thyroid abnormalities appreciated. CARDIOVASCULAR: Borderline tachycardic rate, regular rhythm clinically on auscultation. Patient is attached to monitor in the ED showing sinus rhythm with occasional PVCs. There was a brief 1 to 2-second run of ventricular ta chycardia during our exam. 2+ radial and dorsalis pedis pulses bilaterally. LUNGS: Clear to auscultation bilaterally with no adventitious breath sounds appreciated. Symmetric chest expansion. Breathing room air. Speaking full sentences. ABDOMEN: Soft, nontender and nondistended. There is no guarding or rigidity. Normoactive bowel sounds throughout. No significant hepatosplenomegaly or palpa ble pulses appreciated. No suprapubic tenderness. No CVA tenderness. No significant presacral pitting edema appreciated. MUSCULOSKELETAL: Moving all 4 extremities; 5/5 muscle strength testing of bi lateral upper and lower extremities. EXTREMITIES: There is some slight trace nonpitting edema bilateral lower extremities. Some signs of arthritic changes bilateral hands (involving DIP). NEUROLOGICAL: Patient is alert and oriented to person place and time. She responds appropriately to all questions and commands. Cranial nerves III through XII are grossly intact. There is no dysdiadochokinesis. Short-term memory recall is intact. Nondysarthric speech. PSYCHIATRIC: Pleasant mood. Affect appears appropriate. LABORATORY DATA: Please see below. IMAGING: Portable chest x-ray, 12/08/2020 FINDINGS: The mediastinum and cardiac silhouette are stable and within normal limits for portable technique. Large hiatal hernia noted. The lung orozco are clear without acute consolidation, effusion, or pneumothorax. Skeletal structures are intact. IMPRESSION: No acute cardiopulmonary process appreciated. MICROBIOLOGY: Please see below. ASSESSMENT & PLAN: Coral is a pleasant 75yo f w/ notable h/o NIDDMII, HTN, DLD, chronic diarrhea/?IBS, chronic hypomagnesemia, ?CKD 3a, and remote LLE DVT who presented to the ED on 12/08/20 complaining of transient episodes of lightheadedness over the past 72 hours at both rest and with activity without any loss of consciousness or associated symptoms. She was admitted primarily for continued work-up of presyncope along with management of acute renal failure. #Recent transient episodes of presyncope -Patient has reported intermittent transient episodes of lightheadedness over the past 72 hours that have occurred both at rest and with activity with no other significant associated symptoms -Denies any loss of consciousness, dizziness, tinnitus, chest pain, palpitations, dyspnea, numbness or paresthesias of extremities, blurry vision/double vision, nausea/vomiting. -Patient was seen by her PCP earlier on day of presentation (12/08) and presented to the ED after having another episode in the afternoon. -Initially presented with borderline sinus tachycardia with pSVT per ED; denies chest pain, chest pressure, or palpitations -Negative troponins -EKG: Sinus rhythm (92 bpm) with PACs, left axis deviation, left bundle bra nch block, widened QRS -On admission exam, monitors in the ED showed occasional PVCs with 2 sep arate episodes of 1-2 seconds of transient V. tach -CXR: no acute CP process -Telemetry ordered -Initial electrolytes showed significant hypomagnesemia (0.9); s/p IV repletion -Initial orthostatic blood pressure assessment ordered by ED -Orthostatic vital signs have been ordered every 8 hours upon admission -Head CT without contrast, bilateral carotid ultrasounds ordered for continue work-up -Assisted ambulation only; fall risk precautions #Acute renal failure on possible chronic kidney disease, stage IIIa -Serum creatinine 1.57/BUN 28/calculated GFR 34% -Recent baseline appears to be serum creatinine of 1.2 -Of note, patient was seen earlier today by PCP with Cr 1.30 -Possibly secondary to prerenal cause/dehydration from diarrhea -s/p 1L NS bolus in ED; maintenance NS 1L ordered (120 mL/hr) with encouragement of po intake -Patient's home hydrochlorothiazide and losartan were initially not continued in the setting of her HAYDER; patient's home omeprazole was also not initially continued -Urine electrolytes ordered to calculate fractional excretion of urea (patient is on home diuretic therefore fractional excretion of sodium may be inaccurate) -Avoid nephrotoxic medications -Renal ultrasound ordered -Of note, creatinine kinase was not elevated upon admission -Repeat metabolic panel ordered #Hypomagnesemia i/s/o chronic hypomagnesemia -Most likely secondary to patient's chronic diarrhea -Serum magnesium in ED was 0.9; serum potassium 3.6, serum sodium 139 -s/p two Mag sulfate IV runs in ED -Repeat magnesium levels and metabolic panel ordered -Will replete as needed -Of note, patient is on slow magnesium chloride (71.5 mg BID) as outpatient -On telemetry #Abnormal urinalysis -Patient is asymptomatic from a standpoint, denied any suprapubic tenderness, dysuria, hematuria, or flank tenderness in the ED; afebrile -ED ordered a urinalysis which showed positive nitrite/2+ leukocyte Estrace/2+ urine bacteria -Pending reflex to culture -At this time patient is asymptomatic with borderline white count and no absolute neutrophilia; antimicrobials not warranted at this time, will monitor for culture results #Elevated BNP -BNP in the ED was 1452; there are no prior BNP values to assess for patient's baseline -No crackles, no significant JVD, no bilateral pitting edema, no respiratory distress on exam in the ED; clinically, patient not showing signs of fluid overload -Oral hydration encouraged along with maintenance fluid s/p 1L bolus in ED in setting of acute renal failure -Daily weights with intake and output monitoring #Borderline leukocytosis -WBC 10.4 in the ED with no absolute neutrophilia. -Patient is afebrile saturating well on room air, not hypotensive, not tachypneic -May be reactive; follow-up on repeat CBC #Elevated TSH -Outpatient work-up earlier on 12/08 by PCP revealed TSH of 9.97 (lab NL 0.35 83.740) with free T4 of 0.68 (lab NL 0.761.46) -Patient has no known history of hypothyroidism -In the setting of tachycardia with paroxysmal SVT and transient (1-2-second) runs of V. tach, immediate thyroid replacement pharmacotherapy is not warranted -Something to follow-up on as outpatient when not in the acute setting. #NIDDM II -Takes 2 500 mg tablets of Metformin extended release bid at home; held upon admission -SSI w/ hypoGly protocol; FSBS AC & HS -CC/2 g Na diet -sGlu upon admission was 114 #History of hypertension -At time of admission examination, blood pressure was 131/63 -Just before 7 PM in the ED patient reached a zenith BP of 191/78; patient asymptomatic -In the setting of patient's acute renal failure, her home hydrochlorothiazide and losartan are held -Patient is on telemetry #DLD -Patient's home acetamide was continued upon admission #Chronic nonbloody diarrhea -Patient's diarrhea is unchanged from baseline; she reports chronic nonbloody di arrhea for least the past 2 years and associates that with Metformin (this despite being on extended release Metformin) -A gastrointestinal panel was ordered by the ED -She does take magnesium supplementation as an outpatient but it is not magnesium citrate (she takes slow magnesium chloride) -s/p 1L bolus, w/ 1L maintenance fluids ordered & po intake encouraged -prn qd loperamide ordered #History of acid reflux -No reports of reflux on review upon admission -Patient does take a PPI as outpatient -Per review of records, appears to have CKD stage IIIa -Presented today with acute renal failure -Home PPI not initially continued in the setting of acute renal failure -As needed Mylanta was added for now; should reflux become an issue, could revisit potentially continuing her home PPI #DVT prophylaxis: Heparin 5000 units q8h in setting of acute renal failure; compression stockings also ordered Code status: Full code Disposition: Patient will be admitted on telemetry for continued work-up of presyncope, correction of electrolytes as needed, and acute renal failure; expected at least stay of 2 midnights. Patient's requested person of contact is her significant other, Usman Cochran ([phone]). Vital Signs Vital Signs Date Time Temp Pulse Resp B/P (MAP) Pulse Ox O2 Delivery O2 Flow Rate FiO2 12/08/20 22:34 83 134/64 (87) 94 92/68 (76) 107 186/80 (115) 12/08/20 22:15 16 96 Room Air 12/08/20 17:45 98.2 Laboratory Data Labs 24H Laboratory Tests 2 12/08/20 19:14: Immature Granulocyte % (Auto) 0.4, Neutrophils (%) (Auto) 63.7, Lymphocytes (%) (Auto) 27.7, Monocytes (%) (Auto) 6.7, Eosinophils (%) (Auto) 0.8, Basophils (%) (Auto) 0.7, Neutrophils # (Auto) 6.6, Lymphocytes # (Auto) 2.9, Monocytes # (Auto) 0.7, Eosinophils # (Auto) 0.1, Basophils # (Auto) 0.1, Nucleated Red Blood Cells % (auto) 0.0, Anion Gap 11, Glomerular Filtration Rate 34.0L, Calcium Level 9.2, Total Creatine Kinase 116, Creatine Kinase MB 1.8, Creatine Kinase MB Relative Index 1.55, Troponin I < 0.02, WY-Npw-O-Type Natriuretic Peptide 1452H 12/08/20 20:53: Urine Color YELLOW, Urine Appearance HAZY, Urine pH 5.0, Urine Specific Vest 1.009, Urine Protein NEGATIVE, Urine Glucose (UA) NEGATIVE, Urine Ketones NEGATIVE, Urine Blood 1+H, Urine Nitrite POSITIVEH, Urine Bilirubin NEGATIVE, Urine Urobilinogen 0.2, Urine Leukocyte Esterase 2+H, Urine WBC (Auto) 18H, Urine RBC (Auto) 5H, Urine Hyaline Casts (Auto) 0, Urine Bacteria (Auto) 2+H, Urine Squamous Epithelial Cells 2, Urine Mucus (Auto) SMALL, Urine Sperm (Auto) CBC/BMP Laboratory Tests 12/08/20 19:14 Microbiology Microbiology 12/08/20 Urine Culture, Received Pending Home Medications Scheduled Ezetimibe (Ezetimibe) 10 Mg Tablet, 10 MG PO DAILY Hydrochlorothiazide (Hydrochlorothiazide) 50 Mg Tab, 50 MG PO DAILY Losartan Potassium (Losartan Potassium) 50 Mg Tab, 50 MG PO DAILY Magnesium Chloride (Slow-Mag) 71.5 Mg Tablet.dr, 2 TAB PO DAILY Metformin HCl (Metformin HCl ER) 500 Mg Tab.er.24h, 1,000 MG PO BID Omeprazole (Omeprazole) 20 Mg Cap, 20 MG PO BID Scheduled PRN Acetaminophen (Acetaminophen 8 Hour) 650 Mg Tablet.er, 650 MG PO Q6HP PRN for PAIN Allergies Coded Allergies: aspirin (Verified Allergy, Intermediate, Hives, 09/01/18) cephalexin (Verified Allergy, Intermediate, rash, 09/01/18) warfarin (Verified Adverse Reaction, Mild, severe bruising, 09/01/18) A-FIB/CHADSVASC A-FIB History Current/History of A-Fib/PAF?: No Current PO Anticoag Therapy: EMELI Marquez D.O. Dec 08, 2020 22:38
[2020-12-08 22:44] LABS: MAGNESIUM LEVEL 0.9 MG/DL (1.8-2.4)
[2020-12-09] VITALS (7 sets, daily range): BP systolic 128–159; BP diastolic 61–70
[2020-12-09 00:03] LABS: RSV AMPLIFICATION NEGATIVE (NEGATIVE)
--- NOTE | 2020-12-09 00:13 | REPVR ---
PROCEDURE INFORMATION: Exam: CT Head Without Contrast Exam date and time: 12/08/2020 11:05 PM Age: 75 years old Clinical indication: Syncope and collapse; Additional info: 4 days of pre-syncopal sxs both w/ TECHNIQUE: Imaging protocol: Computed tomography of the head without contrast. Radiation optimization: All CT scans at this facility use at least one of these dose optimization techniques: automated exposure control; mA and/or kV adjustment per patient size (includes targeted exams where dose is matched to clinical indication); or iterative reconstruction. COMPARISON: No relevant prior studies available. FINDINGS: Brain: There are global involutional changes of the brain which are in keeping with the patient's age. Periventricular hypodensities are nonspecific but most likely reflect chronic microvascular ischemic disease. There is no acute intracranial hemorrhage or abnormal extra-axial fluid collection identified. There is no intracranial mass effect or shift of midline structures. The ramsey-white differentiation is preserved throughout. Cerebral ventricles: There is no sulcal or ventricular effacement. The basilar cisterns are open. No hydrocephalus. Paranasal sinuses: The visualized sinuses are unremarkable. Mastoid air cells: There is no mastoid effusion detected. Vasculature: Atherosclerotic vascular disease is noted at the level of the skull base. Bones/joints: No calvarial fracture or destructive osseous lesions are seen. IMPRESSION: No acute intracranial pathology identified by CT. Electronically signed by: Flora Izaguirre On 12/09/2020 00:12:54 AM
[2020-12-09] MEDS ORDERED: LOPERAMIDE 2 MG CAPLET PO PRN (00:35)
[2020-12-09 03:15] LABS: MAGNESIUM LEVEL 1.5 MG/DL (1.8-2.4); POTASSIUM SERUM 3.6 MEQ/L (3.5-5.1)
[2020-12-09] MEDS: MAG SULF 1GM/100ML (MAG RUN) 1 GM in IV 1 EA IV SCH ×2 (03:44→05:41)
[2020-12-09 03:47] LABS: CREATININE,RANDOM URINE 75.1 MG/DL
[2020-12-09 05:40] LABS: BASO # 0.1 10^3/uL (0.0-0.2); BASO % 0.8 % (0.0-1.0); EOS # 0.1 10^3/uL (0.0-0.5); EOS % 0.9 % (0.0-3.0); HEMATOCRIT 31.8 % (36.0-47.0); HEMOGLOBIN 10.2 g/dl (12.0-15.5); LYMPH # 1.9 10^3/uL (1.5-5.0); LYMPH % 29.1 % (24.0-44.0); MEAN CORPUSCULAR HEMOGLOBIN 28.7 pg (27.0-33.0); MEAN CORPUSCULAR HGB CONC 32.1 g/dl (32.0-36.5); MEAN CORPUSCULAR VOLUME 89.3 fl (80.0-96.0); MONO # 0.4 10^3/uL (0.0-0.8); MONO % 6.1 % (2.0-8.0); NEUTROPHILS # 4.1 10^3/uL (1.5-8.5); NEUTROPHILS % 62.9 % (36.0-66.0); PLATELET COUNT, AUTOMATED 184 10^3/uL (150-450); RED BLOOD COUNT 3.56 10^6/uL (4.00-5.40); WHITE BLOOD COUNT 6.4 10^3/uL (4.0-10.0)
[2020-12-09] MEDS ORDERED: HEPARIN SOD (PORCINE) 5000UNITS/ML 1ML VIAL/SYRINGE SC SCH (06:00)
[2020-12-09 06:17] LABS: ALBUMIN 3.5 GM/DL (3.2-5.2); BILIRUBIN,TOTAL 0.2 MG/DL (0.2-1.0); CALCIUM LEVEL 8.1 MG/DL (8.8-10.2); CREATININE FOR GFR 1.22 MG/DL (0.55-1.30); GLOMERULAR FILTRATION RATE 45.5 (>39); MAGNESIUM LEVEL 2.2 MG/DL (1.8-2.4); POTASSIUM SERUM 3.6 MEQ/L (3.5-5.1); TOTAL PROTEIN 6.9 GM/DL (6.4-8.2)
--- NOTE | 2020-12-09 07:49 | REP ---
INDICATION: 4d presyncopal sxs w/ COMPARISON: None. TECHNIQUE: Real-time ultrasound evaluation and duplex Doppler interrogation of the extracranial carotid vasculature is performed. FINDINGS: Antegrade flow is observed in both vertebral arteries. Right carotid: The right common carotid artery shows diffuse intimal thickening but is otherwise unremarkable. There ismoderate mixed plaquing in the right carotid bulb and proximal ICA on two-dimensional scanning. Color flow and spectral Doppler interrogation are unremarkable on the right. Velocity chart right carotid: Right CCA PSV: 93 cm/S Right ICA PSV: 108 cm/S Right ICA EDV: 29 cm/S Right ECA PSV: 139 cm/S Right ICA/CCA ratio: 1.17 Left carotid: The left common carotid artery shows diffuse intimal thickening but is otherwise unremarkable. There is mild mixed plaquing in the left carotid bulb and proximal ICA on two-dimensional scanning. Color flow and spectral Doppler interrogation are unremarkable on the left. Velocity chart left carotid: Left CCA PSV: 82 cm/S Left ICA PSV: 84 cm/S Left ICA EDV: 27 cm/S Left ECA PSV: 124 cm/S Left ICA/CCA ratio: 1.02 IMPRESSION: Less than 50% category narrowing in the right internal carotid artery by Doppler velocity criteria. Less than 50% category narrowing in the left ICA by Doppler velocity criteria. <Electronically signed by Florencio Mcdowell > 12/09/20 0724
--- NOTE | 2020-12-09 07:50 | REP ---
INDICATION: Acute renal failure on ckd 3a. COMPARISON: None. TECHNIQUE: Urinary tract sonography. FINDINGS: Scanning at the level of the urinary bladder shows no abnormality. Renal cortical echogenicity pattern is normal bilaterally and contours are smooth. There is no evidence of hydronephrosis, cyst, mass, or calculus in either kidney. The right kidney measures 10.2 x 3.9 x 4.3 cm. Left renal dimensions are 12.0 x 4.0 x 5.9 cm. IMPRESSION: Normal urinary tract sonography. <Electronically signed by Florencio Mcdowell > 12/09/20 [id number]
[2020-12-09] MEDS: HumaLOG INSULIN (NovoLOG) PER UNIT SC SCH ×2 (08:17→12:00)
[2020-12-09] MEDS ORDERED: EZETIMIBE 10MG TABLET (ZETIA) PO SCH (09:00)
[2020-12-09] MEDS ORDERED: FAMO20TA PO (12:30)
[2020-12-09] MEDS ORDERED: LEVO250T12 PO (15:27)
[2020-12-09] MEDS ORDERED: LevoFLOXacin 500 MG TABLET PO ONE (16:00)
--- NOTE | 2020-12-09 16:57 | ECGEPIP ---
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 No PVCs compared with 12/08/2020 at 1908 hrs. Electronically Signed on 12-09-2020 16:56:54 EDT by Alex Rosa
--- NOTE | 2020-12-09 18:01 | DS.PDOC ---
Discharge Summary General Date of Admission Dec 09, 2020 at 00:51 Date of Discharge 12/09/20 Discharge Summary PROCEDURES PERFORMED DURING STAY: [None]. DISCHARGE DIAGNOSES: Hypomagnesemia Orthostatic hypotension Mild dehydration Secondary diagnosis DM, HTN, DLD, chronic diarrhea/IBS, chronic hypomagnesemia, CKD 3, remote LLE DVT, history of kidney stone, chronic anemia COMPLICATIONS/CHIEF COMPLAINT: Dehydration, Hypomagnesemia, Tachycardia. HOSPITAL COURSE: This is 75yo f w/ notable h/o DM, HTN, DLD, chronic diarrhea/?IBS, chronic hypomagnesemia, CKD 3a, and remote LLE DVT who presented to the ED on 12/08/20 complaining of transient episodes of lightheadedness over the past 72 hours at both rest and with activity without any loss of consciousness or associated symptoms. She was admitted primarily for continued work-up of presyncope. She was found to be severely hypomagnesium it with a magnesium level of 0.9. Also her creatinine was elevated to 1.57 from a baseline of 1.3 suggestive of mild dehydration. Patient was monitored on telemetry overnight and showed very short episodes lasting few seconds 5-10 seconds of SVTs and some PACs most prominent during ambulation and activities. At rest she remained in sinus rhythm with left bundle branch block. She had carotid ultrasound done which was negative for any significant obstruction. Her cardiac enzymes were negative. She also had an echo done the result of which is pending. Her vitals were positive for orthostatic changes from supine to sitting position initially on admission which resolved after some IV fluids. Her UA was dirty with positive nitrates and positive leukocyte esterase. Urine culture was sent. She was given 1 dose of levofloxacin in the hospital and discharged home with a course of levofloxacin. her omeprazole was stopped and in its place started on famotidine. Her hydrochlorothiazide was also stopped. DISCHARGE MEDICATIONS: Please see below. ALLERGIES: Please see below. PHYSICAL EXAMINATION ON DISCHARGE: VITAL SIGNS: Please see below. GENERAL: Alert oriented ambulating in the room without any complaints HEENT: Normocephalic atraumatic moist mucous membranes anicteric eyes NECK: Supple no JVD CARDIOVASCULAR EXAMINATION: S1-S2 regular, mildly tachycardic, no rub murmur gallop RESPIRATORY EXAMINATION: Bilateral vesicular breath sounds clear to auscultation. ABDOMINAL EXAMINATION: Soft nontender bowel sounds normal EXTREMITIES: No edema LABORATORY DATA: Please see below. ACTIVITY: [As tolerated]. DIET: Carb consistent DISPOSITION: 01 Home, Self-Care. DISCHARGE INSTRUCTIONS: PMD in 3 to 5 days. Will need referral to cardiology for further work-up evaluation ITEMS TO FOLLOWUP ON ON OUTPATIENT: Follow-up echo results Follow-up urine culture DISCHARGE CONDITION: [Stable]. TIME SPENT ON DISCHARGE: 35 minutes. Vital Signs/I&Os Vital Signs Date Time Temp Pulse Resp B/P (MAP) Pulse Ox O2 Delivery O2 Flow Rate FiO2 12/09/20 12:00 98.0 79 18 138/64 (88) 97 Room Air I&O- Last 24 Hours up to 6 AM 12/09/20 06:00 Intake Total 60 ml Output Total 450 ml Balance -390 ml Laboratory Data Labs 24H Laboratory Tests 2 12/08/20 19:14: Immature Granulocyte % (Auto) 0.4, Neutrophils (%) (Auto) 63.7, Lymphocytes (%) (Auto) 27.7, Monocytes (%) (Auto) 6.7, Eosinophils (%) (Auto) 0.8, Basophils (%) (Auto) 0.7, Neutrophils # (Auto) 6.6, Lymphocytes # (Auto) 2.9, Monocytes # (Auto) 0.7, Eosinophils # (Auto) 0.1, Basophils # (Auto) 0.1, Nucleated Red Blood Cells % (auto) 0.0, Anion Gap 11, Glomerular Filtration Rate 34.0L, Calcium Level 9.2, Magnesium Level 0.9*L, Total Creatine Kinase 116, Creatine Kinase MB 1.8, Creatine Kinase MB Relative Index 1.55, Troponin I < 0.02, YY-Gau-N-Type Natriuretic Peptide 1452H 12/08/20 20:53: Urine Color YELLOW, Urine Appearance HAZY, Urine pH 5.0, Urine Specific [place] 1.009, Urine Protein NEGATIVE, Urine Glucose (UA) NEGATIVE, Urine Ketones NEGATIVE, Urine Blood 1+H, Urine Nitrite POSITIVEH, Urine Bilirubin NEGATIVE, Urine Urobilinogen 0.2, Urine Leukocyte Esterase 2+H, Urine WBC (Auto) 18H, Urine RBC (Auto) 5H, Urine Hyaline Casts (Auto) 0, Urine Bacteria (Auto) 2+H, Urine Squamous Epithelial Cells 2, Urine Mucus (Auto) SMALL, Urine Sperm (Auto) , Urine Random Creatinine 75.1, Urine Random Sodium 55, Urine Random Urea Nitrogen 431 12/08/20 21:20: Coronavirus (COVID-19)(PCR) NEGATIVE, Influenza Type A (RT-PCR) NEGATIVE, Influenza Type B (RT-PCR) NEGATIVE, Respiratory Syncytial Virus (PCR) NEGATIVE 12/08/20 23:36: Bedside Glucose (Misc Panel) 136H 12/09/20 02:39: Magnesium Level 1.5L 12/09/20 05:03: Magnesium Level 2.2, Immature Granulocyte % (Auto) 0.2, Neutrophils (%) (Auto) 62.9, Lymphocytes (%) (Auto) 29.1, Monocytes (%) (Auto) 6.1, Eosinophils (%) (Auto) 0.9, Basophils (%) (Auto) 0.8, Neutrophils # (Auto) 4.1, Lymphocytes # (Auto) 1.9, Monocytes # (Auto) 0.4, Eosinophils # (Auto) 0.1, Basophils # (Auto) 0.1, Nucleated Red Blood Cells % (auto) 0.0, Anion Gap 11, Glomerular Fi ltration Rate 45.5, Calcium Level 8.1L, Total Bilirubin 0.2, Aspartate Amino Transf (AST/SGOT) 14, Alanine Aminotransferase (ALT/SGPT) 25, Alkaline Phosphatase 46, Total Protein 6.9, Albumin 3.5, Albumin/Globulin Ratio 1.0L CBC/BMP Laboratory Tests 12/08/20 19:14 12/09/20 02:39 12/09/20 05:03 FSBS Laboratory Tests Test 12/08/20 23:36 Range/Units Bedside Glucose (Misc Panel) 136 83-110 MG/DL Microbiology Microbiology 12/08/20 Urine Culture, Received Pending Discharge Medications Scheduled Ezetimibe (Ezetimibe) 10 Mg Tablet, 10 MG PO DAILY, (Reported) Famotidine (Famotidine) 20 Mg Tablet, 20 MG PO BID Levofloxacin (Levofloxacin) 250 Mg Tablet, 1 TAB PO DAILY Losartan Potassium (Losartan Potassium) 50 Mg Tab, 50 MG PO DAILY, (Reported) Magnesium Chloride (Slow-Mag) 71.5 Mg Tablet.dr, 2 TAB PO DAILY, (Reported) Metformin HCl (Metformin HCl ER) 500 Mg Tab.er.24h, 1,000 MG PO BID, (Reported) Scheduled PRN Acetaminophen (Acetaminophen 8 Hour) 650 Mg Tablet.er, 650 MG PO Q6HP PRN for PAIN, (Reported) Allergies Coded Allergies: aspirin (Verified Allergy, Intermediate, Hives, 09/01/18) cephalexin (Verified Allergy, Intermediate, rash, 09/01/18) warfarin (Verified Adverse Reaction, Mild, severe bruising, 09/01/18) Kym Chávez MD Dec 09, 2020 18:01
--- NOTE | 2020-12-09 20:42 | ECHO ---
ECHOCARDIOGRAM DATE OF PROCEDURE: 12/09/2020 Age: Gender: Height: 158 cm Weight: 81 kg REFERRING PHYSICIAN: Dr. Kym Chávez INDICATION: Syncope. MEASUREMENTS: IVS 0.9 LV 4.6 LVPW 1.2 LA 3.5 Aorta 3.0 IVC 1.4 Mitral E-wave velocity 100, A velocity 135 E prime septal 5.0 E prime lateral 5.8 FINDINGS: The study is of fair technical quality with somewhat limited visualization. Underlying sinus rhythm with wide QRS complex. Left ventricle is normal size. Mild LVH is noted. There is global hypokinesis with septal wall motion abnormality corresponding to likely LBBB. There is suspicion for akinesis of basal inferior wall. Overall estimated LV EF is in neighborhood of 35%. Right ventricle appears grossly normal. Left atrium is at least mildly enlarged. Right atrium was poorly visualized. Aortic valve is tricuspid. It is sclerotic and relatively poorly seen, but only minimal restriction of mobility is seen by 2D imaging. There are degenerative abnormalities of mitral valve with thickening of mitral leaflets and mitral annular calcifications. Tricuspid valve appears normal. Pulmonic valve was not well seen. Small noncompressive pericardial effusion is noted. Inferior vena cava was normal size. Aortic root is normal. Aortic arch and abdominal aorta were not well seen. Doppler interrogation of aortic valve reveals stenosis with mean gradient 7 mmHg and no insufficiency. There is also trivial mitral stenosis and mild mitral insufficiency. Mild tricuspid insufficiency is seen. Calculated pulmonary artery pressure is in high 30s, corresponding to mild pulmonary hypertension. Mitral inflow pattern and tissue Doppler imaging of mitral annulus revealed grade 1 diastolic dysfunction. CONCLUSIONS: 1. Study is of fair technical quality. Underlying sinus rhythm with wide QRS complex, most likely LBBB. 2. Normal LV size with mild LVH, global hypokinesis, septal wall motion abnormality consistent with LBBB, and suspicion for basal inferior akinesis. Overall estimated LVEF around 35%. Grade 1 diastolic dysfunction. 3. Aortic sclerosis, resulting in mild stenosis and no insufficiency. 4. Mild mitral stenosis and insufficiency. 5. Mild tricuspid insufficiency. 6. Probably normal central venous pressure, at least mild pulmonary hypertension. MTDD
--- NOTE | 2020-12-10 17:25 | ECGEPIP ---
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
== END 2020-12-09 16:33 | disposition home or self-care (01) | DRG 641 ==
LOC: M ED 17:44 → M ED INP 12-09 00:51 → ENRESERV 12-09 01:02 → M PCU 12-09 02:44
PROVIDERS: ADMIT Family Medicine; ATTEND Family Medicine
DX: E83.42 Hypomagnesemia (principal); N17.9 Acute kidney failure, unspecified; E11.22 Type 2 diabetes mellitus with diabetic chronic kidney disease; I12.9 Hypertensive chronic kidney disease with stage 1 through stage 4 chronic kidney disease, or unspecified chronic kidney disease; E78.5 Hyperlipidemia, unspecified; K59.00 Constipation, unspecified; Z86.718 Personal history of other venous thrombosis and embolism; E86.0 Dehydration; N18.31 Chronic kidney disease, stage 3a; Z98.41 Cataract extraction status, right eye; Z98.42 Cataract extraction status, left eye; Z90.49 Acquired absence of other specified parts of digestive tract; Z90.79 Acquired absence of other genital organ(s); K21.9 Gastro-esophageal reflux disease without esophagitis; Z20.822 Contact with and (suspected) exposure to COVID-19; Z79.84 Long term (current) use of oral hypoglycemic drugs; Z79.899 Other long term (current) drug therapy; Z88.1 Allergy status to other antibiotic agents; Z88.6 Allergy status to analgesic agent; Z88.8 Allergy status to other drugs, medicaments and biological substances; R42 Dizziness and giddiness; I95.1 Orthostatic hypotension

== ENCOUNTER → 2020-12-08 | Outpatient (REF) | payer MEDICARE ==
[~2020-12-08] MED LIST changes: +EZET10TA21 PO; +FAMO20TA PO; +LEVO250T12 PO; +METF-838 PO
[2020-12-08 13:31] LABS: BASO # 0.1 10^3/uL (0.0-0.2); BASO % 0.8 % (0.0-1.0); EOS # 0.1 10^3/uL (0.0-0.5); EOS % 1.3 % (0.0-3.0); HEMATOCRIT 36.9 % (36.0-47.0); HEMOGLOBIN 11.8 g/dl (12.0-15.5); LYMPH # 2.3 10^3/uL (1.5-5.0); LYMPH % 31.8 % (24.0-44.0); MEAN CORPUSCULAR HEMOGLOBIN 28.9 pg (27.0-33.0); MEAN CORPUSCULAR VOLUME 90.4 fl (80.0-96.0); MONO # 0.5 10^3/uL (0.0-0.8); MONO % 6.8 % (2.0-8.0); NEUTROPHILS # 4.2 10^3/uL (1.5-8.5); PLATELET COUNT, AUTOMATED 229 10^3/uL (150-450); RED BLOOD COUNT 4.08 10^6/uL (4.00-5.40); WHITE BLOOD COUNT 7.1 10^3/uL (4.0-10.0)
[2020-12-08 13:57] LABS: ALBUMIN 4.2 GM/DL (3.2-5.2); BILIRUBIN,TOTAL 0.3 MG/DL (0.2-1.0); CALCIUM LEVEL 9.3 MG/DL (8.8-10.2); CREATININE FOR GFR 1.3 MG/DL (0.55-1.30); FREE T4 0.68 NG/DL (0.76-1.46); GLOMERULAR FILTRATION RATE 42.3 (>39); POTASSIUM SERUM 3.6 MEQ/L (3.5-5.1); THYROID STIMULATING HORMONE 9.97 uIU/ML (0.358-3.740); TOTAL PROTEIN 8.3 GM/DL (6.4-8.2)
== END ==
LOC: M SFHCADAM 10:17
PROVIDERS: ATTEND Family Medicine
DX: R55 Syncope and collapse (principal); Z79.899 Other long term (current) drug therapy

== ENCOUNTER → 2020-12-11 | Outpatient (REF) | payer MEDICARE ==
[~2020-12-11] MED LIST changes: +EZET10TA21 PO; +FAMO20TA PO; +LEVO250T12 PO; +METF-838 PO
[2020-12-11 13:40] LABS: HEMOGLOBIN A1c 7.1 %
[2020-12-11 15:14] LABS: ALBUMIN 3.7 GM/DL (3.2-5.2); BILIRUBIN,TOTAL 0.2 MG/DL (0.2-1.0); CALCIUM LEVEL 9.1 MG/DL (8.8-10.2); CREATININE FOR GFR 1.18 MG/DL (0.55-1.30); GLOMERULAR FILTRATION RATE 47.3 (>39); MAGNESIUM LEVEL 1.6 MG/DL (1.8-2.4); POTASSIUM SERUM 4.3 MEQ/L (3.5-5.1); TOTAL PROTEIN 7.5 GM/DL (6.4-8.2)
== END ==
LOC: M SFHCADAM 09:35
PROVIDERS: ATTEND Family Medicine
DX: E83.42 Hypomagnesemia (principal); E11.9 Type 2 diabetes mellitus without complications

== ENCOUNTER → 2020-12-24 | Outpatient (REF) | payer MEDICARE ==
[2020-12-24 13:39] LABS: ALBUMIN 4.3 GM/DL (3.2-5.2); BILIRUBIN,TOTAL 0.2 MG/DL (0.2-1.0); CALCIUM LEVEL 10.2 MG/DL (8.8-10.2); CREATININE FOR GFR 1.22 MG/DL (0.55-1.30); GLOMERULAR FILTRATION RATE 45.5 (>39); MAGNESIUM LEVEL 1.8 MG/DL (1.8-2.4); POTASSIUM SERUM 4.7 MEQ/L (3.5-5.1)
== END ==
LOC: M SFHCADAM 10:29
PROVIDERS: ATTEND Family Medicine
DX: E11.69 Type 2 diabetes mellitus with other specified complication (principal); E83.42 Hypomagnesemia; Z87.440 Personal history of urinary (tract) infections; Z79.899 Other long term (current) drug therapy
CPT/HCPCS: 80053; 81002; 83735; 87086; G0463

== ENCOUNTER → 2021-02-16 | Outpatient (REF) | payer MEDICARE | LOC: M LABDRWAD 13:51 | PROVIDERS: ATTEND Internal Medicine Endocrinology, Diabetes & Metabolism | DX: E03.9 Hypothyroidism, unspecified (principal) ==

== ENCOUNTER → 2021-02-16 | Outpatient (REF) | payer MEDICARE ==
[2021-02-16 15:36] LABS: BILIRUBIN,TOTAL 0.2 MG/DL (0.2-1.0); CALCIUM LEVEL 9.8 MG/DL (8.8-10.2); CREATININE FOR GFR 1.16 MG/DL (0.55-1.30); GLOMERULAR FILTRATION RATE 48.2 (>39); POTASSIUM SERUM 4.7 MEQ/L (3.5-5.1); TOTAL PROTEIN 7.8 GM/DL (6.4-8.2)
[2021-02-16 21:15] LABS: HEMOGLOBIN A1c 6.6 %
== END ==
LOC: M SFHCADAM 07:35
PROVIDERS: ATTEND Family Medicine
DX: E11.9 Type 2 diabetes mellitus without complications (principal)

== ENCOUNTER → 2021-02-24 | Outpatient (REF) | payer MEDICARE ==
[2021-02-24 13:12] LABS: CREATININE, URINE 44.8 MG/DL; MALB URINE SIEMENS 13.8 MG/L; MAU/CREAT RATIO 30.8 MCG/MG (0.0-30.0)
== END ==
LOC: M SFHCADAM 08:12
PROVIDERS: ATTEND Family Medicine
DX: E11.9 Type 2 diabetes mellitus without complications (principal)

== ENCOUNTER → 2021-04-02 | Outpatient (REF) | payer MEDICARE ==
[~2021-04-02] MED LIST changes: -LEVO250T12 PO; +LEVO250T3 PO; +LOSA50TA28; +LOSA50TA28 PO; -LOSA50TA88; -LOSA50TA88 PO
[2021-04-02 14:21] LABS: CALCIUM LEVEL 9.6 MG/DL (8.8-10.2); CREATININE FOR GFR 1.3 MG/DL (0.55-1.30); GLOMERULAR FILTRATION RATE 42.3 (>39); POTASSIUM SERUM 4.3 MEQ/L (3.5-5.1)
== END ==
LOC: M LABDRWAD 12:19
PROVIDERS: ATTEND Internal Medicine Cardiovascular Disease
DX: I50.42 Chronic combined systolic (congestive) and diastolic (congestive) heart failure (principal)

== ENCOUNTER → 2021-06-04 | Outpatient (REF) | payer MEDICARE ==
[2021-06-04 16:14] LABS: CALCIUM LEVEL 9.8 MG/DL (8.8-10.2); CREATININE FOR GFR 1.32 MG/DL (0.55-1.30); GLOMERULAR FILTRATION RATE 41.4 (>39); MAGNESIUM LEVEL 2.2 MG/DL (1.8-2.4); POTASSIUM SERUM 4.5 MEQ/L (3.5-5.1)
== END ==
LOC: M LABDRWAD 13:07
PROVIDERS: ATTEND Physician Assistant
DX: I50.42 Chronic combined systolic (congestive) and diastolic (congestive) heart failure (principal); E03.9 Hypothyroidism, unspecified; E11.65 Type 2 diabetes mellitus with hyperglycemia

== ENCOUNTER → 2021-06-04 | Outpatient (REF) | payer MEDICARE ==
[2021-06-04 16:13] LABS: CALCIUM LEVEL 9.7 MG/DL (8.8-10.2); CREATININE FOR GFR 1.28 MG/DL (0.55-1.30); FREE T4 0.96 NG/DL (0.76-1.46); GLOMERULAR FILTRATION RATE 42.9 (>39); POTASSIUM SERUM 4.6 MEQ/L (3.5-5.1); THYROID STIMULATING HORMONE 2.43 uIU/ML (0.358-3.740)
== END ==
LOC: M LABDRWAD 13:08
PROVIDERS: ATTEND Nurse Practitioner Family
DX: E03.9 Hypothyroidism, unspecified (principal); E11.65 Type 2 diabetes mellitus with hyperglycemia

== ENCOUNTER → 2021-06-16 | Outpatient (REF) | payer MEDICARE ==
[2021-06-16 13:40] LABS: ALBUMIN 4.3 GM/DL (3.2-5.2); BILIRUBIN,TOTAL 0.3 MG/DL (0.2-1.0); CALCIUM LEVEL 9.4 MG/DL (8.8-10.2); CREATININE FOR GFR 1.45 MG/DL (0.55-1.30); GLOMERULAR FILTRATION RATE 37.2 (>39); POTASSIUM SERUM 4.5 MEQ/L (3.5-5.1); TOTAL PROTEIN 8.2 GM/DL (6.4-8.2)
[2021-06-16 16:02] LABS: HEMOGLOBIN A1c 6.5 %
== END ==
LOC: M SFHCADAM 07:40
PROVIDERS: ATTEND Family Medicine
DX: E11.9 Type 2 diabetes mellitus without complications (principal)

== ENCOUNTER → 2022-03-29 | Outpatient (REF) | payer MEDICARE ==
[~2022-03-29] MED LIST changes: +LEVO1TAB38 PO; -LEVO250T3 PO
[2022-03-29 15:58] LABS: HEMOGLOBIN A1c 6.3 % (4.0-6.0)
[2022-03-29 16:01] LABS: ALBUMIN 4.3 G/DL (3.2-5.2); BILIRUBIN,TOTAL 0.3 MG/DL (0.3-1.2); CALCIUM LEVEL 9.5 MG/DL (8.3-10.6); CREATININE FOR GFR 1.11 MG/DL (0.55-1.30); GLOMERULAR FILTRATION RATE 50.6 (>39); POTASSIUM SERUM 4.3 MMOL/L (3.5-5.1); TOTAL PROTEIN 8.3 G/DL (5.7-8.2)
== END ==
LOC: M SFHCADAM 09:00
PROVIDERS: ATTEND Family Medicine
DX: E11.69 Type 2 diabetes mellitus with other specified complication (principal)

== ENCOUNTER → 2022-07-05 | Outpatient (REF) | payer MEDICARE ==
[2022-07-06 10:46] LABS: CREATININE, URINE 15.4 MG/DL; MALB URINE SIEMENS < 3.0 MG/L; MAU/CREAT RATIO 19.4 MCG/MG (0.0-30.0)
== END ==
LOC: M SFHCADAM 09:28
PROVIDERS: ATTEND Family Medicine
DX: E11.69 Type 2 diabetes mellitus with other specified complication (principal)

== ENCOUNTER → 2022-11-09 | Outpatient (REF) | payer MEDICARE ==
[~2022-11-09] MED LIST changes: +ENTR1TAB7 PO; +EZET10TA58; +EZET10TA58 PO; +FARX1TAB3 PO; +LEVO50TA5 PO; +METO1TAB32 PO; -ZETI10TA16; -ZETI10TA16 PO
[2022-11-09 13:17] LABS: BASO # 0.1 10^3/uL (0.0-0.2); BASO % 0.8 % (0.0-1.0); EOS # 0.1 10^3/uL (0.0-0.5); EOS % 1.1 % (0.0-3.0); HEMATOCRIT 39.8 % (36.0-47.0); HEMOGLOBIN 12.2 g/dl (12.0-15.5); LYMPH # 1.8 10^3/uL (1.5-5.0); LYMPH % 24.9 % (24.0-44.0); MEAN CORPUSCULAR HEMOGLOBIN 28.7 pg (27.0-33.0); MEAN CORPUSCULAR HGB CONC 30.7 g/dl (32.0-36.5); MEAN CORPUSCULAR VOLUME 93.6 fl (80.0-96.0); MONO # 0.5 10^3/uL (0.0-0.8); MONO % 6.8 % (2.0-8.0); NEUTROPHILS # 4.7 10^3/uL (1.5-8.5); PLATELET COUNT, AUTOMATED 207 10^3/uL (150-450); RED BLOOD COUNT 4.25 10^6/uL (4.00-5.40); WHITE BLOOD COUNT 7.1 10^3/uL (4.0-10.0)
[2022-11-09 13:48] LABS: HEMOGLOBIN A1c 6.6 % (4.0-6.0)
[2022-11-09 13:54] LABS: FREE T4 0.96 NG/DL (0.89-1.76)
[2022-11-09 13:56] LABS: THYROID STIMULATING HORMONE 10.193 uIU/ML (0.55-4.78)
[2022-11-09 13:57] LABS: ALBUMIN 4.1 G/DL (3.2-5.2); BILIRUBIN,TOTAL 0.3 MG/DL (0.3-1.2); CALCIUM LEVEL 9.4 MG/DL (8.3-10.6); CHOLESTEROL RISK RATIO 3.66 (<5); CREATININE FOR GFR 1.18 MG/DL (0.55-1.30); HDL CHOLESTEROL 64.6 MG/DL (>40); LDL CHOLESTEROL 137.2 MG/DL (<100); MAGNESIUM LEVEL 1.8 MG/DL (1.8-2.4); NON-HDL-C 172.4 MG/DL; POTASSIUM SERUM 4.8 MMOL/L (3.5-5.1); TOTAL PROTEIN 7.6 G/DL (5.7-8.2)
== END ==
LOC: M SFHCADAM 07:34
PROVIDERS: ATTEND Family Medicine
DX: I10 Essential (primary) hypertension (principal); E78.2 Mixed hyperlipidemia; E11.9 Type 2 diabetes mellitus without complications; E61.2 Magnesium deficiency; Z86.2 Personal history of diseases of the blood and blood-forming organs and certain disorders involving the immune mechanism; E03.9 Hypothyroidism, unspecified

== ENCOUNTER → 2022-11-25 | Outpatient (CLI) | payer MEDICARE | LOC: M ADAMS 08:07 | PROVIDERS: ATTEND Physician Assistant Medical | DX: M47.816 Spondylosis without myelopathy or radiculopathy, lumbar region (principal); M46.96 Unspecified inflammatory spondylopathy, lumbar region; M41.86 Other forms of scoliosis, lumbar region ==

== ENCOUNTER → 2022-12-21 | Outpatient (REF) | payer MEDICARE ==
[2022-12-21 14:25] LABS: FREE T4 1.06 NG/DL (0.89-1.76)
[2022-12-21 14:26] LABS: THYROID STIMULATING HORMONE 2.37 uIU/ML (0.55-4.78)
== END ==
LOC: M SFHCADAM 07:37
PROVIDERS: ATTEND Physician Assistant Medical
DX: E03.9 Hypothyroidism, unspecified (principal)

== ENCOUNTER → 2023-05-27 | Outpatient (REF) | payer MEDICARE ==
[2023-05-27 14:11] LABS: CALCIUM LEVEL 9.1 MG/DL (8.3-10.6); GLOMERULAR FILTRATION RATE 56.8 (>32); MAGNESIUM LEVEL 1.9 MG/DL (1.8-2.4); POTASSIUM SERUM 4.8 MMOL/L (3.5-5.1)
== END ==
LOC: M LABDRWAD 12:51
PROVIDERS: ATTEND Physician Assistant
DX: I50.42 Chronic combined systolic (congestive) and diastolic (congestive) heart failure (principal)

== ENCOUNTER → 2023-09-13 | Outpatient (REF) | payer MEDICARE ==
[2023-09-13 13:23] LABS: ALBUMIN 4.1 G/DL (3.2-5.2); BILIRUBIN,TOTAL 0.2 MG/DL (0.3-1.2); CALCIUM LEVEL 9.6 MG/DL (8.3-10.6); CREATININE FOR GFR 1.46 MG/DL (0.55-1.30); GLOMERULAR FILTRATION RATE 36.7 (>32); POTASSIUM SERUM 4.8 MMOL/L (3.5-5.1); TOTAL PROTEIN 7.4 G/DL (5.7-8.2)
[2023-09-13 13:27] LABS: HEMOGLOBIN A1c 6.7 % (4.0-6.0)
== END ==
LOC: M SFHCADAM 07:27
PROVIDERS: ATTEND Family Medicine
DX: E11.9 Type 2 diabetes mellitus without complications (principal)

== ENCOUNTER → 2023-09-15 | Outpatient (REF) | payer MEDICARE ==
[2023-09-15 15:16] LABS: CALCIUM LEVEL 9.1 MG/DL (8.3-10.6); CREATININE FOR GFR 1.31 MG/DL (0.55-1.30); GLOMERULAR FILTRATION RATE 41.6 (>32); POTASSIUM SERUM 4.9 MMOL/L (3.5-5.1)
== END ==
LOC: M SFHCADAM 10:56
PROVIDERS: ATTEND Family Medicine
DX: R79.89 Other specified abnormal findings of blood chemistry (principal)

== ENCOUNTER → 2023-12-15 | Outpatient (REF) | payer MEDICARE ==
[2023-12-15 14:00] LABS: ALBUMIN 4.2 G/DL (3.2-5.2); ALKALINE PHOSPHATASE 57 U/L (46-116); ALT/SGPT 12 U/L (7.0-40); AST/SGOT < 8 U/L (<34); BILIRUBIN,TOTAL 0.3 MG/DL (0.3-1.2); BLOOD UREA NITROGEN 32 MG/DL (9-23); CALCIUM LEVEL 9.8 MG/DL (8.3-10.6); CARBON DIOXIDE LEVEL 23 MMOL/L (20-31); CHLORIDE LEVEL 107 MMOL/L (98-107); CREATININE FOR GFR 0.97 MG/DL (0.55-1.30); GLOMERULAR FILTRATION RATE 58.8 (>32); GLUCOSE, FASTING 132 MG/DL (74-106); POTASSIUM SERUM 4.6 MMOL/L (3.5-5.1); SODIUM LEVEL 136 MMOL/L (136-145); TOTAL PROTEIN 7.8 G/DL (5.7-8.2)
[2023-12-15 14:01] LABS: FREE T4 1.37 NG/DL (0.89-1.76); THYROID STIMULATING HORMONE 2.533 uIU/ML (0.55-4.78)
[2023-12-15 14:16] LABS: HEMOGLOBIN A1c 6.6 % (4.0-6.0)
== END ==
LOC: M SFHCADAM 07:30
PROVIDERS: ATTEND Family Medicine
DX: E03.9 Hypothyroidism, unspecified (principal); E11.9 Type 2 diabetes mellitus without complications

== ENCOUNTER → 2024-05-30 | Outpatient (REF) | payer MEDICARE ==
[2024-05-30 14:25] LABS: ALBUMIN 4.1 G/DL (3.2-5.2); BILIRUBIN,TOTAL 0.3 MG/DL (0.3-1.2); CALCIUM LEVEL 9.3 MG/DL (8.3-10.6); CREATININE FOR GFR 1.08 MG/DL (0.55-1.30); FREE T4 1.26 NG/DL (0.89-1.76); GLOMERULAR FILTRATION RATE 51.8 (>32); POTASSIUM SERUM 4.5 MMOL/L (3.5-5.1); THYROID STIMULATING HORMONE 3.159 uIU/ML (0.55-4.78)
== END ==
LOC: M SFHCADAM 07:24
PROVIDERS: ATTEND Family Medicine
DX: E03.9 Hypothyroidism, unspecified (principal); E11.69 Type 2 diabetes mellitus with other specified complication

== ENCOUNTER → 2024-06-12 | Outpatient (REF) | payer MEDICARE ==
[2024-06-12 14:23] LABS: CHOLESTEROL RISK RATIO 5.35 (<5); HDL CHOLESTEROL 49.5 MG/DL (>40); LDL CHOLESTEROL 168.7 MG/DL (<100); NON-HDL-C 215.5 MG/DL
== END ==
LOC: M LRY 13:13
PROVIDERS: ATTEND Physician Assistant
DX: E78.2 Mixed hyperlipidemia (principal)